=== PATIENT | female | born 1930 | race African-American/Black ===

== ENCOUNTER 2018-03-23 17:01 | Inpatient (IN) | payer MEDICARE, OTHER ==
[2018-03-23 18:19] LABS: ALANINE AMINOTRANSFERASE 26 U/L (9-52); ALKALINE PHOSPHATASE 59 U/L (38-126); ASPARTATE AMINO TRANSFERASE 55 U/L (14-36); BILIRUBIN,DIRECT 0.7 mg/dL (0.0-0.4); BILIRUBIN,TOTAL 0.9 mg/dL (0.2-1.3); BLOOD UREA NITROGEN 76 mg/dL (7-20); CALCIUM 10.1 mg/dL (8.4-10.2); CREATINE KINASE 1262 U/L (30-135); GLUCOSE 133 mg/dL (75-110); POTASSIUM 3.9 mmol/L (3.6-5.0); TOTAL PROTEIN 7.8 g/dL (6.3-8.2)
[2018-03-23 18:21] LABS: HEMATOCRIT 44.1 % (36.0-47.0); HEMOGLOBIN 14.5 g/dL (12.0-15.5); MEAN CORPUSCULAR HEMOGLOBIN 28.6 pg (27.0-33.4); MEAN CORPUSCULAR VOLUME 87 fl (80-97); PLATELET COUNT 218 10^3/uL (150-450); RED BLOOD COUNT 5.09 10^6/uL (3.72-5.28); RED CELL DISTRIBUTION WIDTH 14.6 % (11.5-14.0); WHITE BLOOD COUNT 13.5 10^3/uL (4.0-10.5)
[2018-03-23 18:24] LABS: ALCOHOL < 10 mg/dL (NONE DETECTED); ANION GAP 19 (5-19); CARBON DIOXIDE 24 mmol/L (22-30); CHLORIDE 116 mmol/L (98-107); SODIUM 159.1 mmol/L (137-145)
--- NOTE | 2018-03-23 18:30 | RADIOLOGY REPORT (SQ) ---
EXAM DESCRIPTION: CT HEAD WITHOUT COMPLETED DATE/TIME: 03/23/2018 6:18 pm REASON FOR STUDY: found down fall ams COMPARISON: None. TECHNIQUE: Axial images acquired through the brain without intravenous contrast. Images reviewed wi th bone, brain and subdural windows. Additional sagittal and coronal reconstructions were generated. Images stored on PACS. All CT scanners at this facility use dose modulation, iterative reconstruction, and/or weight based d osing when appropriate to reduce radiation dose to as low as reasonably achievable (ALARA). [facility]: Dose Right [facility]: CareDose [facility]: Dose Right [facility]: Teradose 4D [facility]: [employer] RADIATION DOSE: CT Rad equipment meets quality standard of care and radiation dose reduction techniq ues were employed. CTDIvol: 53.2 mGy. DLP: 991 mGy-cm. mGy. LIMITATIONS: None. FINDINGS: VENTRICLES: Normal size and contour. CEREBRUM: Cortical atrophy. No masses. No hemorrhage. No midline shift. No evidence for acute inf arction. Areas of low density in the white matter most likely chronic small vessel ischemic changes. CEREBELLUM: No masses. No hemorrhage. No alteration of density. No evidence for acute infarction. EXTRAAXIAL SPACES: No fluid collections. No masses. ORBITS AND GLOBE: No intra- or extraconal masses. Normal contour of globe without masses. CALVARIUM: No fracture. PARANASAL SINUSES: No fluid or mucosal thickening. SOFT TISSUES: There may be a shallow scalp hematoma in the left parietal region. OTHER: No other significant finding. IMPRESSION: 1. Possible left parietal scalp hematoma. 2. Chronic microvascular ischemia with no acute intracranial imaging findings. EVIDENCE OF ACUTE STROKE: NO. COMMENT: Quality ID # [id number]: Final reports with documentation of one or more dose reduction techniques (e.g., Automated exposure control, adjustment of the mA and/or kV according to patient size, use of iterative reconstruction technique) TECHNICAL DOCUMENTATION: JOB ID: [id number] [employer] All Rights Reserved Reading location - IP/workstation name: [email or web address]
--- NOTE | 2018-03-23 18:40 | RADIOLOGY REPORT (SQ) ---
EXAM DESCRIPTION: CHEST SINGLE VIEW COMPLETED DATE/TIME: 03/23/2018 6:30 pm REASON FOR STUDY: found down fall ams COMPARISON: None. EXAM PARAMETERS: NUMBER OF VIEWS: One view. TECHNIQUE: Single frontal radiographic view of the chest acquired. RADIATION DOSE: NA LIMITATIONS: None. FINDINGS: LUNGS AND PLEURA: No opacities, masses or pneumothorax. No pleural effusion. MEDIASTINUM AND HILAR STRUCTURES: No masses. Contour normal. HEART AND VASCULAR STRUCTURES: Heart normal in size. Normal vasculature. BONES: No acute findings. HARDWARE: None in the chest. OTHER: No other significant finding. IMPRESSION: NO ACUTE RADIOGRAPHIC FINDING IN THE CHEST. TECHNICAL DOCUMENTATION: JOB ID: [id number] [employer]- All Rights Reserved Reading location - IP/workstation name: [email or web address]
--- NOTE | 2018-03-23 18:41 | RADIOLOGY REPORT (SQ) ---
EXAM DESCRIPTION: HIP BILATERAL COMPLETED DATE/TIME: 03/23/2018 6:30 pm REASON FOR STUDY: found down fall ams COMPARISON: None. NUMBER OF VIEWS: Two views. TECHNIQUE: AP pelvis and additional frog-leg view of the right and left hip. LIMITATIONS: None. FINDINGS: MINERALIZATION: Normal. RIGHT HIP: No fracture or dislocation. No worrisome bone lesions. LEFT HIP: No fracture or dislocation. No worrisome bone lesions. PUBIS AND ISCHIUM: No fracture. PELVIS: No fracture. SACRUM: No fracture or dislocation. No worrisome bone lesions. LOWER LUMBAR SPINE: Lower lumbar degenerative disc changes. SOFT TISSUES: No findings. OTHER: No other significant finding. IMPRESSION: Normal hips. Lumbar degenerative changes. TECHNICAL DOCUMENTATION: JOB ID: [id number] [employer]- All Rights Reserved Reading location - IP/workstation name: [email or web address]
[2018-03-23] MEDS ORDERED: NORMAL SALINE 500 ML IV ONE (18:44)
[2018-03-23] MEDS ORDERED: NORMAL SALINE 1000 ML 1,000 ML IV ONE (18:44)
[2018-03-23 18:46] LABS: ABSOLUTE LYMPHOCYTES# (MANUAL) 0.8 10^3/uL (0.5-4.7); ABSOLUTE MONOCYTES # (MANUAL) 0.8 10^3/uL (0.1-1.4); ABSOLUTE NEUTROPHILS# (MANUAL) 11.9 10^3/uL (1.7-8.2); BAND NEUTROPHILS % (MANUAL) 4 % (3-5); BASOPHILS % (MANUAL) 0 % (0-2); EOSINOPHILS % (MANUAL) 0 % (0-6); LYMPHOCYTES % (MANUAL) 6 % (13-45); MONOCYTES % (MANUAL) 6 % (3-13); SEGMENTED NEUTROPHILS % (MAN) 84 % (42-78); TOTAL CELLS COUNTED 100
[2018-03-23 18:47] LABS: ANISOCYTOSIS SLIGHT; PLATELET COMMENT ADEQUATE
[2018-03-23 19:44] LABS: URINE AMPHETAMINES SCREEN NEGATIVE; URINE BARBITURATES SCREEN NEGATIVE; URINE BENZODIAZEPINES SCREEN NEGATIVE; URINE COCAINE SCREEN NEGATIVE; URINE MARIJUANA (THC) SCREEN NEGATIVE; URINE METHADONE SCREEN NEGATIVE; URINE PHENCYCLIDINE SCREEN NEGATIVE
[2018-03-23 19:48] LABS: APPEARANCE,URINE CLEAR; BILIRUBIN,URINE NEGATIVE (NEGATIVE); GLUCOSE, URINE NEGATIVE (NEGATIVE); KETONES,URINE 20 mg/dL (NEGATIVE); LEUKOCYTE ESTERASE,URINE NEGATIVE (NEGATIVE); NITRITE,URINE NEGATIVE (NEGATIVE); PROTEIN,URINE 100 mg/dL (NEGATIVE); URINE SPECIFIC GRAVITY 1.021
[2018-03-23 19:49] LABS: COLOR,URINE YELLOW
--- NOTE | 2018-03-23 20:39 | EKG REPORT ---
SEVERITY:- BORDERLINE ECG - SINUS TACHYCARDIA BORDERLINE T ABNORMALITIES, INFERIOR LEADS : Confirmed by: Valencia Nguyen MD 23-Mar-2018 20:38:11
[2018-03-23] MEDS ORDERED: RISPERIDONE 0.25 MG TABLET PO PRN (20:48)
[2018-03-23] MEDS ORDERED: MAG HYDROX/AL HYDROX/SIMETH SUSP 30 ML UDCUP PO PRN (20:48)
[2018-03-23] MEDS ORDERED: MAGNESIUM HYDROXIDE SUSP 30 ML UDCUP PO PRN (20:48)
[2018-03-23] MEDS ORDERED: LORAZEPAM INJ 2 MG/1 ML VIAL IV PRN (20:48)
[2018-03-23] MEDS ORDERED: IPRATROPIUM/ALBUTEROL 0.5-2.5 MG/3 ML AMPUL NEB PRN (20:48)
[2018-03-23] MEDS ORDERED: ACETAMINOPHEN 325 MG TABLET PO PRN (20:48)
[2018-03-23 21:55] LABS: CREATINE KINASE MB 8.06 ng/mL (<4.55); TROPONIN I 0.033 ng/mL
[2018-03-23] MEDS: POTASSI CL 20 MEQ/1/2NS 1L 20 MEQ/1,000 ML RTUINJ IV SCH (23:01)
[2018-03-23] MEDS: HEPARIN SOD (PORCINE) 5,000 UNIT/ML 1 ML SYRINGE SUBCUT SCH (23:02)
--- NOTE | 2018-03-23 23:56 | ER Document Report ---
ED General - General Chief Complaint: Hip Injury Stated Complaint: RIGHT HIP PAIN,ALTER MENTAL STATUS Time Seen by Provider: 03/23/18 17:50 TRAVEL OUTSIDE OF THE [place] IN LAST 30 DAYS: No - HPI Patient complains to provider of: Altered mental status Notes: Altered mental status. Patient lives by herself was found on the floor by a neighbor. Last seen approximately 48 hours before the neighbor found her. Patient according to the neighbor does not have any medical issues does not see any doctors and also does not have any family locally. Patient upon my evaluation is alert looks to be significantly dehydrated with dry mucous membranes. Patient was asked what hospital she is that she states that she does not know. When patient is asked the year patient states that she knows but will not tell us the answer. Patient does complain of left hip pain. Patient is unaware of how she fell to the ground or how long she has been on the ground. Neighbor bedside states that the patient's speech is normal for her however she does seem to be more altered - Related Data Allergies/Adverse Reactions: No Known Allergies Allergy (Unverified 03/23/18 18:04) Past Medical History - Social History Smoking Status: Never Smoker Chew tobacco use (# tins/day): No Frequency of alcohol use: None Drug Abuse: None Family History: Reviewed & Not Pertinent Patient has suicidal ideation: No Patient has homicidal ideation: No Renal/ Medical History: Denies: Hx Peritoneal Dialysis Review of Systems - Review of Systems -: Yes ROS unobtainable due to patient's medical condition - Altered mental status Physical Exam - Vital signs Vitals: Temp Resp BP Pulse Ox 97.6 F 17 153/89 H 98 03/23/18 17:15 03/23/18 17:15 03/23/18 17:15 03/23/18 17:15 Interpretation: Normal - General General appearance: Appears well, Alert, Other - Disheveled - HEENT Head: Normocephalic, Atraumatic Eyes: Normal Pupils: PERRL Mucous membranes: Dry - Respiratory Respiratory status: No respiratory distress Chest status: Nontender Breath sounds: Normal Chest palpation: Normal - Cardiovascular Rhythm: Regular Heart sounds: Normal auscultation Murmur: No - Abdominal Inspection: Normal Distension: No distension Bowel sounds: Normal Tenderness: Nontender Organomegaly: No organomegaly - Back Back: Normal, Nontender - Extremities General upper extremity: Normal inspection, Nontender, Normal color, Normal ROM , Normal temperature General lower extremity: Normal inspection, Other - Patient is holding her knees flexed position. Patient lying on her right hip does not complain to palpation initially of the right hip however does complain palpation of the left. Patient has unkempt toenails - Neurological Neuro grossly intact: Yes Cognition: Normal Orientation: AAOx4 Bhavya Coma Scale Eye Opening: Spontaneous Bhav[place] Coma Scale Verbal: Oriented [place] Coma Scale Motor: Obeys Commands [place] Coma Scale Total: 15 Speech: Normal Motor strength normal: LUE, RUE, LLE, RLE Sensory: Normal - Psychological Associated symptoms: Normal affect, Normal mood - Skin Skin Temperature: Warm Skin Moisture: Dry Skin Color: Normal Course - Re-evaluation Re-evalutation: 03/23/18 23:55 Laboratory studies show signs of rhabdomyolysis hypernatremia consistent with dehydration. CT of the head is otherwise normal. Patient will be admitted for further evaluation. - Vital Signs Vital signs: Temp Pulse Resp BP Pulse Ox 97.4 F 90 20 149/82 H 98 03/23/18 22:45 03/23/18 22:45 03/23/18 22:45 03/23/18 22:45 03/23/18 22:45 - Laboratory Result Diagrams: 03/23/18 17:30 03/23/18 17:30 Laboratory results interpreted by me: 03/23/18 03/23/18 03/23/18 17:30 17:30 18:01 WBC 13.5 H RDW 14.6 H Seg Neuts % (Manual) 84 H Lymphocytes % (Manual) 6 L Abs Neuts (Manual) 11.9 H Sodium 159.1 H Chloride 116 H BUN 76 H Est GFR ( Amer) 55 L Est GFR (Non-Af Amer) 46 L Glucose 133 H POC Glucose 122 H Magnesium 3.1 H Direct Bilirubin 0.7 H AST 55 H Creatine Kinase 1262 H Urine Protein Urine Ketones Urine Blood Urine Urobilinogen 03/23/18 19:14 WBC RDW Seg Neuts % (Manual) Lymphocytes % (Manual) Abs Neuts (Manual) Sodium Chloride BUN Est GFR ( Amer) Est GFR (Non-Af Amer) Glucose POC Glucose Magnesium Direct Bilirubin AST Creatine Kinase Urine Protein 100 H Urine Ketones 20 H Urine Blood LARGE H Urine Urobilinogen 2.0 H Discharge - Discharge Clinical Impression: Hypernatremia, Elevated BUN Altered mental status Qualifiers: Altered mental status type: unspecified Qualified Code(s): R41.82 - Altered mental status, unspecified Rhabdomyolysis Qualifiers: Rhabdomyolysis type: non-traumatic Qualified Code(s): M62.82 - Rhabdomyolysis Condition: Good Disposition: ADMITTED INPATIENT Admitting Provider: Hospitalist Unit Admitted: Telemetry
[2018-03-24 03:28] LABS: ABSOLUTE LYMPHOCYTES (AUTO) 0.6 10^3/uL (0.5-4.7); ABSOLUTE MONOCYTES (AUTO) 1.5 10^3/uL (0.1-1.4); ABSOLUTE NEUT (AUTO) 9.9 10^3/uL (1.7-8.2); BASOPHILS % (AUTO) 0.2 % (0-2); HEMATOCRIT 41.1 % (36.0-47.0); HEMOGLOBIN 13.3 g/dL (12.0-15.5); LYMPHOCYTES % (AUTO) 5.2 % (13-45); MEAN CORPUSCULAR HEMOGLOBIN 27.9 pg (27.0-33.4); MEAN CORPUSCULAR HGB CONC 32.5 g/dL (32.0-36.0); MEAN CORPUSCULAR VOLUME 86 fl (80-97); MONOCYTES % (AUTO) 12.7 % (3-13); PLATELET COUNT 168 10^3/uL (150-450); RED BLOOD COUNT 4.78 10^6/uL (3.72-5.28); RED CELL DISTRIBUTION WIDTH 14.4 % (11.5-14.0); SEGMENTED NEUTROPHILS % (AUTO) 81.9 % (42-78); TOTAL CELLS COUNTED % (AUTO) 100 %; WHITE BLOOD COUNT 12.1 10^3/uL (4.0-10.5)
[2018-03-24 03:42] LABS: ANION GAP 9 (5-19); BLOOD UREA NITROGEN 59 mg/dL (7-20); CALCIUM 9.1 mg/dL (8.4-10.2); CARBON DIOXIDE 27 mmol/L (22-30); CHLORIDE 119 mmol/L (98-107); GLUCOSE 110 mg/dL (75-110); PHOSPHORUS 2.8 mg/dL (2.5-4.5); POTASSIUM 3.8 mmol/L (3.6-5.0); SODIUM 155.4 mmol/L (137-145)
[2018-03-24 03:52] LABS: CREATINE KINASE MB 5.61 ng/mL (<4.55); TROPONIN I 0.038 ng/mL
[2018-03-24] MEDS: POTASSI CL 20 MEQ/1/2NS 1L 20 MEQ/1,000 ML RTUINJ IV SCH (05:38)
[2018-03-24] MEDS: HEPARIN SOD (PORCINE) 5,000 UNIT/ML 1 ML SYRINGE SUBCUT SCH ×3 (05:39→22:52)
[2018-03-24 10:00] LABS: CREATINE KINASE MB 3.64 ng/mL (<4.55); TROPONIN I 0.028 ng/mL
[2018-03-24] MEDS: DOCUSATE SODIUM 100 MG CAPSULE PO SCH ×2 (10:15→17:19)
[2018-03-24] MEDS: ACETAMINOPHEN 325 MG TABLET PO SCH ×2 (13:33→17:19)
--- NOTE | 2018-03-24 14:36 | PDOC PROGRESS REPORT ---
Subjective Progress Note for:: 03/24/18 Subjective:: Admitted overnight. Patient has no family however neighbor who is very close and provides support at bedside. Feels that patient is improved this AM however not at baseline. Hip pain persists. Patient denies pain when asked but felt to be delirious. No abdominal pain, NV. Reason For Visit: ENCEPHALOPATHY HYPERNATREMIA, HYPOKALEMIA Physical Exam Vital Signs: Temp Pulse Resp BP Pulse Ox 97.4 F 87 17 111/66 100 03/24/18 11:52 03/24/18 11:52 03/24/18 11:52 03/24/18 11:52 03/24/18 11:52 Intake & Output 03/23/18 03/24/18 03/25/18 06:59 06:59 06:59 Intake Total 1250 Balance 1250 Weight 84.4 kg General appearance: PRESENT: no acute distress, obese Head exam: PRESENT: normocephalic Mouth exam: PRESENT: moist Teeth exam: PRESENT: edentulous Respiratory exam: PRESENT: unlabored Cardiovascular exam: PRESENT: RRR. ABSENT: tachycardia GI/Abdominal exam: PRESENT: soft. ABSENT: tenderness Neurological exam: PRESENT: alert, oriented to person. ABSENT: oriented to place, oriented to time, oriented to situation Psychiatric exam: PRESENT: agitated Results Laboratory Results: 03/24/18 03:11 03/24/18 03:11 03/24/18 03/24/18 03:11 03:11 WBC 12.1 H RBC 4.78 Hgb 13.3 Hct 41.1 MCV 86 MCH 27.9 MCHC 32.5 RDW 14.4 H Plt Count 168 Seg Neutrophils % 81.9 H Lymphocytes % 5.2 L Monocytes % 12.7 Eosinophils % 0.0 Basophils % 0.2 Absolute Neutrophils 9.9 H Absolute Lymphocytes 0.6 Absolute Monocytes 1.5 H Absolute Eosinophils 0.0 Absolute Basophils 0.0 Sodium 155.4 H Potassium 3.8 Chloride 119 H Carbon Dioxide 27 Anion Gap 9 BUN 59 H Creatinine 0.82 Est GFR ( Amer) > 60 Est GFR (Non-Af Amer) > 60 Glucose 110 Calcium 9.1 Phosphorus 2.8 Magnesium 2.8 H 03/23/18 03/24/18 03/24/18 21:18 03:11 09:16 CK-MB (CK-2) 8.06 H 5.61 H 3.64 Troponin I 0.033 0.038 0.028 Impressions: Chest X-Ray 03/23/18 18:01 IMPRESSION: NO ACUTE RADIOGRAPHIC FINDING IN THE CHEST. Head CT 03/23/18 18:01 IMPRESSION: 1. Possible left parietal scalp hematoma. 2. Chronic microvascular ischemia with no acute intracranial imaging findings. EVIDENCE OF ACUTE STROKE: NO. Hip X-Ray 03/23/18 18:01 IMPRESSION: Normal hips. Lumbar degenerative changes. Assessment & Plan - Diagnosis (1) Altered mental status Qualifiers: Altered mental status type: delirium Qualified Code(s): R41.0 - Disorientation, unspecified Is this a current diagnosis for this admission?: Yes Plan: Patient found down at home by neighbor/close friend. Unclear reason. Patient is independent, lives alone, and takes care of most of her ADLs/iADLs. She likely has baseline dementia however current mental status is worse than usual. No evidence of infection (UA/CXR negative). CT head does not show active bleeding, however there is notation of small hematoma. Patient's labs consistent with rhabdo and dehydration. Improved today. Pain may also be contributing to confusion. - Continue IVF - Schedule tylenol - If agitated would consider low dose Zyprexa 0.5mg TID prn (2) Elevated BUN Is this a current diagnosis for this admission?: Yes Plan: Likely due to dehydration. Labs improved on 03/24. Continue conservative management per above. (3) Hypernatremia Is this a current diagnosis for this admission?: Yes Plan: Most likely hyperatremia due to hypovolemia. Continue IVF. (4) Rhabdomyolysis Qualifiers: Rhabdomyolysis type: non-traumatic Qualified Code(s): M62.82 - Rhabdomyolysis Is this a current diagnosis for this admission?: Yes Plan: IVF per above. Will re-check CK in AM to document down trending levels. - Time Time Spent with patient: Less than 15 minutes Anticipated discharge: SNF Within: within 24 hours, within 48 hours
[2018-03-25] MEDS: ACETAMINOPHEN 325 MG TABLET PO SCH ×5 (00:09→23:34)
[2018-03-25] MEDS: NORMAL SALINE 1000 ML 1,000 ML IV PRN (04:41)
[2018-03-25] MEDS: HEPARIN SOD (PORCINE) 5,000 UNIT/ML 1 ML SYRINGE SUBCUT SCH ×3 (07:02→21:17)
[2018-03-25 08:21] LABS: ABSOLUTE EOSINOPHILS # (AUTO) 0.1 10^3/uL (0.0-0.6); ABSOLUTE LYMPHOCYTES (AUTO) 0.8 10^3/uL (0.5-4.7); ABSOLUTE MONOCYTES (AUTO) 0.6 10^3/uL (0.1-1.4); ABSOLUTE NEUT (AUTO) 5.5 10^3/uL (1.7-8.2); BASOPHILS % (AUTO) 0.2 % (0-2); EOSINOPHILS % (AUTO) 0.8 % (0-6); HEMOGLOBIN 12.4 g/dL (12.0-15.5); LYMPHOCYTES % (AUTO) 11.5 % (13-45); MEAN CORPUSCULAR HEMOGLOBIN 28.7 pg (27.0-33.4); MEAN CORPUSCULAR HGB CONC 33.4 g/dL (32.0-36.0); MEAN CORPUSCULAR VOLUME 86 fl (80-97); MONOCYTES % (AUTO) 8.7 % (3-13); PLATELET COUNT 162 10^3/uL (150-450); RED CELL DISTRIBUTION WIDTH 14.4 % (11.5-14.0); SEGMENTED NEUTROPHILS % (AUTO) 78.8 % (42-78); TOTAL CELLS COUNTED % (AUTO) 100 %
[2018-03-25 08:36] LABS: ANION GAP 9 (5-19); BLOOD UREA NITROGEN 31 mg/dL (7-20); CALCIUM 8.7 mg/dL (8.4-10.2); CARBON DIOXIDE 23 mmol/L (22-30); CHLORIDE 115 mmol/L (98-107); CREATINE KINASE 1033 U/L (30-135); GLUCOSE 77 mg/dL (75-110); POTASSIUM 3.7 mmol/L (3.6-5.0); SODIUM 147.3 mmol/L (137-145)
[2018-03-25] MEDS: DOCUSATE SODIUM 100 MG CAPSULE PO SCH ×2 (10:55→17:16)
--- NOTE | 2018-03-25 17:53 | PDOC PROGRESS REPORT ---
Subjective Progress Note for:: 03/25/18 Subjective:: No overnight events. Neighbor who is very close remains steadfast at bedside. States that she is getting a little better. Was more awake this AM. Tolerating some breakfast. Pain better controlled. No fevers, chills, CP, SOB, NV. Agreeable that patient needs SNF placement . Reason For Visit: ENCEPHALOPATHY HYPERNATREMIA, HYPOKALEMIA Physical Exam Vital Signs: Temp Pulse Resp BP Pulse Ox 98.1 F 91 19 113/88 H 98 03/25/18 16:00 03/25/18 16:00 03/25/18 16:00 03/25/18 16:00 03/25/18 16:00 Intake & Output 03/24/18 03/25/18 03/26/18 06:59 06:59 06:59 Intake Total 1250 2100 1840 Balance 1250 2100 1840 Weight 84.4 kg 47 kg General appearance: PRESENT: no acute distress, thin, other - Resting comfortably Head exam: PRESENT: normocephalic Mouth exam: PRESENT: moist Teeth exam: PRESENT: edentulous Respiratory exam: PRESENT: unlabored. ABSENT: tachypnea Cardiovascular exam: PRESENT: +S1, +S2. ABSENT: tachycardia GI/Abdominal exam: PRESENT: soft. ABSENT: tenderness Neurological exam: PRESENT: altered, awake, other - Unable to assess Results Laboratory Results: 03/25/18 07:49 03/25/18 07:49 03/25/18 03/25/18 07:49 07:49 WBC 7.0 RBC 4.30 Hgb 12.4 Hct 37.0 MCV 86 MCH 28.7 MCHC 33.4 RDW 14.4 H Plt Count 162 Seg Neutrophils % 78.8 H Lymphocytes % 11.5 L Monocytes % 8.7 Eosinophils % 0.8 Basophils % 0.2 Absolute Neutrophils 5.5 Absolute Lymphocytes 0.8 Absolute Monocytes 0.6 Absolute Eosinophils 0.1 Absolute Basophils 0.0 Sodium 147.3 H Potassium 3.7 Chloride 115 H Carbon Dioxide 23 Anion Gap 9 BUN 31 H Creatinine 0.68 Est GFR ( Amer) > 60 Est GFR (Non-Af Amer) > 60 Glucose 77 Calcium 8.7 03/23/18 03/24/18 03/24/18 21:18 03:11 09:16 Creatine Kinase CK-MB (CK-2) 8.06 H 5.61 H 3.64 Troponin I 0.033 0.038 0.028 03/25/18 07:49 Creatine Kinase 1033 H CK-MB (CK-2) Troponin I Impressions: Chest X-Ray 03/23/18 18:01 IMPRESSION: NO ACUTE RADIOGRAPHIC FINDING IN THE CHEST. Head CT 03/23/18 18:01 IMPRESSION: 1. Possible left parietal scalp hematoma. 2. Chronic microvascular ischemia with no acute intracranial imaging findings. EVIDENCE OF ACUTE STROKE: NO. Hip X-Ray 03/23/18 18:01 IMPRESSION: Normal hips. Lumbar degenerative changes. Assessment & Plan - Diagnosis (1) Altered mental status Qualifiers: Altered mental status type: delirium Qualified Code(s): R41.0 - Disorientation, unspecified Is this a current diagnosis for this admission?: Yes Plan: Patient found down at home by neighbor/close friend. Unclear reason. Patient is independent, lives alone, and takes care of most of her ADLs/iADLs. She likely has baseline dementia however current mental status is worse than usual. No evidence of infection (UA/CXR negative). CT head does not show active bleeding, however there is notation of small hematoma. Patient's labs consistent with rhabdo and dehydration. Improved today. Pain may also be contributing to confusion. - Slight improvement on 03/25 however not at baseline - Continue IVF and scheduled - If agitated would consider low dose Zyprexa 0.5mg TID prn - PT consult (2) Elevated BUN Is this a current diagnosis for this admission?: Yes Plan: Likely due to dehydration. Labs continue to improve on 03/25, BUN 31. Continue conservative management per above. (3) Hypernatremia Is this a current diagnosis for this admission?: Yes Plan: Most likely hyperatremia due to hypovolemia. Improving, continue IVF. (4) Rhabdomyolysis Qualifiers: Rhabdomyolysis type: non-traumatic Qualified Code(s): M62.82 - Rhabdomyolysis Is this a current diagnosis for this admission?: Yes Plan: IVF per above. CK downtrending on 03/25, will not repeat - Time Time Spent with patient: Less than 15 minutes Anticipated discharge: SNF - Discharge plan has started looking at SNF PT consult
[2018-03-26 05:34] LABS: ABSOLUTE EOSINOPHILS # (AUTO) 0.1 10^3/uL (0.0-0.6); ABSOLUTE LYMPHOCYTES (AUTO) 0.9 10^3/uL (0.5-4.7); ABSOLUTE MONOCYTES (AUTO) 0.7 10^3/uL (0.1-1.4); BASOPHILS % (AUTO) 0.2 % (0-2); EOSINOPHILS % (AUTO) 2.2 % (0-6); HEMATOCRIT 33.9 % (36.0-47.0); HEMOGLOBIN 11.3 g/dL (12.0-15.5); LYMPHOCYTES % (AUTO) 13.3 % (13-45); MEAN CORPUSCULAR HEMOGLOBIN 28.5 pg (27.0-33.4); MEAN CORPUSCULAR HGB CONC 33.5 g/dL (32.0-36.0); MEAN CORPUSCULAR VOLUME 85 fl (80-97); MONOCYTES % (AUTO) 10.4 % (3-13); PLATELET COUNT 142 10^3/uL (150-450); RED BLOOD COUNT 3.99 10^6/uL (3.72-5.28); SEGMENTED NEUTROPHILS % (AUTO) 73.9 % (42-78); TOTAL CELLS COUNTED % (AUTO) 100 %; WHITE BLOOD COUNT 6.7 10^3/uL (4.0-10.5)
[2018-03-26] MEDS: ACETAMINOPHEN 325 MG TABLET PO SCH ×4 (06:00→22:59)
[2018-03-26] MEDS: HEPARIN SOD (PORCINE) 5,000 UNIT/ML 1 ML SYRINGE SUBCUT SCH ×3 (06:00→21:05)
[2018-03-26 06:17] LABS: ANION GAP 7 (5-19); BLOOD UREA NITROGEN 19 mg/dL (7-20); CALCIUM 7.8 mg/dL (8.4-10.2); CARBON DIOXIDE 22 mmol/L (22-30); CHLORIDE 111 mmol/L (98-107); GLUCOSE 72 mg/dL (75-110); POTASSIUM 3.3 mmol/L (3.6-5.0); SODIUM 139.6 mmol/L (137-145)
[2018-03-26] MEDS: DOCUSATE SODIUM 100 MG CAPSULE PO SCH (09:21)
[2018-03-26] MEDS ORDERED: POLYETHYLENE GLYCOL 3350 POWDER 17 GM/1 PACKET PO ONE (12:30)
--- NOTE | 2018-03-26 16:59 | PDOC PROGRESS REPORT ---
Subjective Progress Note for:: 03/26/18 Subjective:: No overnight events. Remains somnulent however will wake up. Oriented only to self. PO intake has been poor. Pain controlled. No fevers, chills, CP, SOB, NV. Needs SNF placement . Reason For Visit: ENCEPHALOPATHY HYPERNATREMIA, HYPOKALEMIA Physical Exam Vital Signs: Temp Pulse Resp BP Pulse Ox 98.2 F 65 16 148/73 H 100 03/26/18 16:00 03/26/18 16:00 03/26/18 16:00 03/26/18 16:00 03/26/18 16:00 Intake & Output 03/25/18 03/26/18 03/27/18 06:59 06:59 06:59 Intake Total 2100 2940 Balance 2100 2940 Weight 47 kg General appearance: PRESENT: no acute distress, thin, other - Ill appearing, sleeping in bed Respiratory exam: PRESENT: unlabored Cardiovascular exam: PRESENT: +S1, +S2. ABSENT: tachycardia GI/Abdominal exam: PRESENT: soft. ABSENT: tenderness Extremities exam: ABSENT: pedal edema Neurological exam: PRESENT: alert, oriented to person. ABSENT: oriented to place, oriented to time Skin exam: PRESENT: dry Results Laboratory Results: 03/26/18 04:45 03/26/18 04:45 03/26/18 03/26/18 04:45 04:45 WBC 6.7 RBC 3.99 Hgb 11.3 L Hct 33.9 L MCV 85 MCH 28.5 MCHC 33.5 RDW 14.0 Plt Count 142 L Seg Neutrophils % 73.9 Lymphocytes % 13.3 Monocytes % 10.4 Eosinophils % 2.2 Basophils % 0.2 Absolute Neutrophils 5.0 Absolute Lymphocytes 0.9 Absolute Monocytes 0.7 Absolute Eosinophils 0.1 Absolute Basophils 0.0 Sodium 139.6 Potassium 3.3 L Chloride 111 H Carbon Dioxide 22 Anion Gap 7 BUN 19 Creatinine 0.56 Est GFR ( Amer) > 60 Est GFR (Non-Af Amer) > 60 Glucose 72 L Calcium 7.8 L 03/23/18 03/24/18 03/24/18 21:18 03:11 09:16 Creatine Kinase CK-MB (CK-2) 8.06 H 5.61 H 3.64 Troponin I 0.033 0.038 0.028 03/25/18 07:49 Creatine Kinase 1033 H CK-MB (CK-2) Troponin I Impressions: Chest X-Ray 03/23/18 18:01 IMPRESSION: NO ACUTE RADIOGRAPHIC FINDING IN THE CHEST. Head CT 03/23/18 18:01 IMPRESSION: 1. Possible left parietal scalp hematoma. 2. Chronic microvascular ischemia with no acute intracranial imaging findings. EVIDENCE OF ACUTE STROKE: NO. Hip X-Ray 03/23/18 18:01 IMPRESSION: Normal hips. Lumbar degenerative changes. Assessment & Plan - Diagnosis (1) Altered mental status Qualifiers: Altered mental status type: delirium Qualified Code(s): R41.0 - Disorientation, unspecified Is this a current diagnosis for this admission?: Yes Plan: Patient found down at home by neighbor/close friend. Unclear reason. Patient is independent, lives alone, and takes care of most of her ADLs/iADLs. She likely has baseline dementia however current mental status is worse than usual. No evidence of infection (UA/CXR negative). CT head does not show active bleeding, however there is notation of small hematoma. Patient's labs consistent with rhabdo and dehydration. 03/26: slowly improving, unclear if this is her baseline - Continue supportive management - If agitated would consider low dose Zyprexa 0.5mg TID prn - PT evaluated patient, 2 person max assist, needs to be placed at SNF (2) Elevated BUN Is this a current diagnosis for this admission?: Yes Plan: Likely due to dehydration. Labs continue to improve on 03/26, BUN 19. Continue conservative management per above. (3) Hypernatremia Is this a current diagnosis for this admission?: Yes Plan: Most likely hyperatremia due to hypovolemia. Now resolved (4) Rhabdomyolysis Qualifiers: Rhabdomyolysis type: non-traumatic Qualified Code(s): M62.82 - Rhabdomyolysis Is this a current diagnosis for this admission?: Yes Plan: IVF per above. CK downtrending on 03/25, will not repeat (5) Goals of care, counseling/discussion Is this a current diagnosis for this admission?: Yes Plan: Patient has a living will and has designated HCPOA. Information given to home. Patient has no living next of kin. Neighbor has been primary life enrichment assistant for many years - Plan is for neighbor to go to home to see if she is actually HCPOA. She will obtain paperwork on 03/27 - Once verified, willing to have GOC discussion including de-escalation of care if patient does not improve - Agreeable to SNF placement for interim - Time Time Spent with patient: 15-24 minutes Anticipated discharge: SNF Within: within 24 hours, when bed available
[2018-03-26] MEDS: MIRTAZAPINE 15 MG TABLET PO SCH (21:31)
[2018-03-27] MEDS: HEPARIN SOD (PORCINE) 5,000 UNIT/ML 1 ML SYRINGE SUBCUT SCH ×4 (03:54→23:08)
[2018-03-27] MEDS: NORMAL SALINE 1000 ML 1,000 ML IV PRN (03:54)
[2018-03-27] MEDS: ACETAMINOPHEN 325 MG TABLET PO SCH ×4 (06:14→22:45)
[2018-03-27 06:29] LABS: ANION GAP 9 (5-19); BLOOD UREA NITROGEN 11 mg/dL (7-20); CARBON DIOXIDE 25 mmol/L (22-30); CHLORIDE 109 mmol/L (98-107); GLUCOSE 74 mg/dL (75-110); SODIUM 142.5 mmol/L (137-145)
[2018-03-27 06:34] LABS: POTASSIUM 2.9 mmol/L (3.6-5.0)
[2018-03-27] MEDS: POTASSIUM CHLORIDE 20 MEQ/50 ML RTU IV SCH ×2 (07:03→08:49)
[2018-03-27] MEDS ORDERED: NORMAL SALINE 1000 ML 1,000 ML IV PRN (09:38)
[2018-03-27] MEDS: POLYETHYLENE GLYCOL 3350 POWDER 17 GM/1 PACKET PO SCH (10:19)
[2018-03-27] MEDS ORDERED: RISPERIDONE 0.25 MG TABLET PO PRN (14:27)
--- NOTE | 2018-03-27 14:46 | PDOC PROGRESS REPORT ---
Subjective Progress Note for:: 03/27/18 Subjective:: The patient is an 87-year-old female with limited past medical history secondary to advanced dementia (oriented to self only) unavailability of family members and no previous hospital records. The patient was admitted on 2017 for encephalopathy, hypernatremia, hypokalemia, and rhabdomyolysis. Patient is seen on morning rounds. She is found resting in bed comfortably on room air. She is sleeping when I enter the room but does wake easily when I say her name. She is not verbal with me, but does shake her head no when asked if she is in any discomfort; otherwise does not answer questions or follow directions. Per nursing staff, the patient is oriented to self only, refuses most meals, and intermittently refuses medications. Plan for today is to correct potassium and attempt to verify if patient has an established HCPOA/POA. Patient is nearing discharge to SNF and due to poor p.o. intake, may be appropriate for hospice referral. Reason For Visit: ENCEPHALOPATHY HYPERNATREMIA, HYPOKALEMIA Physical Exam Vital Signs: Temp Pulse Resp BP Pulse Ox 98.2 F 70 14 171/72 H 97 03/27/18 11:53 03/27/18 11:53 03/27/18 11:53 03/27/18 11:53 03/27/18 11:53 Intake & Output 03/26/18 03/27/18 03/28/18 06:59 06:59 06:59 Intake Total 2940 2640 Balance 2940 2640 Weight 49 kg General appearance: PRESENT: no acute distress, thin, well-developed, other - Frail, chronically ill-appearing Head exam: PRESENT: atraumatic, normocephalic Eye exam: PRESENT: conjunctiva pink, EOMI, PERRLA. ABSENT: scleral icterus Ear exam: PRESENT: normal external ear exam Mouth exam: PRESENT: moist, tongue midline Neck exam: ABSENT: carotid bruit, JVD, lymphadenopathy, thyromegaly Respiratory exam: PRESENT: clear to auscultation bettie, symmetrical, unlabored. ABSENT: rales, rhonchi, wheezes Cardiovascular exam: PRESENT: RRR. ABSENT: diastolic murmur, rubs, systolic murmur Pulses: PRESENT: normal dorsalis pedis pul Vascular exam: PRESENT: normal capillary refill GI/Abdominal exam: PRESENT: normal bowel sounds, soft. ABSENT: distended, guarding, mass, organolmegaly, rebound, tenderness Rectal exam: PRESENT: deferred Extremities exam: ABSENT: pedal edema Neurological exam: PRESENT: alert, oriented to person. ABSENT: oriented to place, oriented to time, oriented to situation Skin exam: PRESENT: dry, intact, warm. ABSENT: cyanosis, rash Results Laboratory Results: 03/26/18 04:45 03/27/18 05:49 03/27/18 03/27/18 05:49 05:49 Sodium 142.5 Potassium 2.9 L* Chloride 109 H Carbon Dioxide 25 Anion Gap 9 BUN 11 Creatinine 0.50 L Est GFR ( Amer) > 60 Est GFR (Non-Af Amer) > 60 Glucose 74 L Calcium 8.0 L Magnesium 2.0 03/23/18 03/24/18 03/24/18 21:18 03:11 09:16 Creatine Kinase CK-MB (CK-2) 8.06 H 5.61 H 3.64 Troponin I 0.033 0.038 0.028 03/25/18 07:49 Creatine Kinase 1033 H CK-MB (CK-2) Troponin I Impressions: Chest X-Ray 03/23/18 18:01 IMPRESSION: NO ACUTE RADIOGRAPHIC FINDING IN THE CHEST. Head CT 03/23/18 18:01 IMPRESSION: 1. Possible left parietal scalp hematoma. 2. Chronic microvascular ischemia with no acute intracranial imaging findings. EVIDENCE OF ACUTE STROKE: NO. Hip X-Ray 03/23/18 18:01 IMPRESSION: Normal hips. Lumbar degenerative changes. Assessment & Plan - Diagnosis (1) Altered mental status Qualifiers: Altered mental status type: delirium Qualified Code(s): R41.0 - Disorientation, unspecified Is this a current diagnosis for this admission?: Yes Plan: The patient was admitted after being found down at home by a neighbor/close friend; unclear downtime or cause of fall. Prior to admission, the patient lived independently. Unclear baseline mental status, however, does likely have some underlying dementia. No evidence of infection (UA/CXR negative) Head CT revealed possible left parietal scalp hematoma and chronic microvascular ischemia with no acute intracranial findings. LFTs acceptable. Continue supportive care. Continue to correct electrolyte derangements. Avoid sedating medications. Risperidone 0.25 mg every 12 hours as needed anxiety/agitation. The patient has been placed on mirtazapine; may improve underlying/unknown depression as well as support appetite. Fall precautions. PT/OT evaluations; recommendations for SNF placement. Discharge planning is consulted; appreciate their assistance in establishing whether or not the patient has an HC POA. If patient's mental status does not continue to improve and p.o. intake increase , may need to consider hospice referral. (2) Hypokalemia Is this a current diagnosis for this admission?: Yes Plan: Secondary to poor p.o. intake. Magnesium normal. Replaced via IV; will monitor chemistries and continue to replace as needed. (3) Anemia Is this a current diagnosis for this admission?: Yes Plan: Secondary to hemodilution; patient has received approximately 9 L IV fluids over the course of this admission for correction of dehydration and rhabdomyolysis. No indications of active bleeding. IV fluid rate is reduced. We will continue to monitor. (4) Rhabdomyolysis Qualifiers: Rhabdomyolysis type: non-traumatic Qualified Code(s): M62.82 - Rhabdomyolysis Is this a current diagnosis for this admission?: Yes Plan: Improving; CK trending down, no longer monitoring. Continue IVF, though at slightly decreased rate : 75ml/hr. Encourage p.o. fluids. Turn/reposition q2 hours; OOB daily with assistance. (5) At risk for malnutrition Is this a current diagnosis for this admission?: Yes Plan: Patient with low BMI (21.1), loss of subcutaneous fat and muscle, advanced dementia (oriented to self only) with poor p.o. intake since time of admission. Has been placed on mirtazapine for appetite support. We will consult the registered dietitian for recommendations. (6) Goals of care, counseling/discussion Is this a current diagnosis for this admission?: Yes Plan: Per previous providers notes, the patient has no living next of kin. Discharge planning has been consulted to assist with determining whether or not the patient has a healthcare power of lamination operator. Per note, the patient's neighbor has been assisting in caring for the patient believes that she may have one on file at local home and will assist in contacting the home to verify paperwork. Patient is recommended to be discharged to SNF, may benefit from palliative care /hospice referral. (7) Hypernatremia Is this a current diagnosis for this admission?: Yes Plan: Resolved; secondary to dehydration. (8) Elevated BUN Is this a current diagnosis for this admission?: Yes Plan: Resolved; secondary to dehydration and rhabdomyolysis. - Time Time Spent with patient: 15-24 minutes Medications reviewed and adjusted accordingly: Yes Anticipated discharge: SNF Within: within 48 hours
[2018-03-27 16:02] LABS: ANION GAP 11 (5-19); BLOOD UREA NITROGEN 8 mg/dL (7-20); CALCIUM 8.1 mg/dL (8.4-10.2); CARBON DIOXIDE 23 mmol/L (22-30); CHLORIDE 107 mmol/L (98-107); GLUCOSE 74 mg/dL (75-110); POTASSIUM 3.4 mmol/L (3.6-5.0); SODIUM 141.1 mmol/L (137-145)
[2018-03-27] MEDS ORDERED: POTASSI CL 20 MEQ/50 ML RIDER 20 MEQ/50 ML RTUPB IV ONE (17:00)
[2018-03-27] MEDS: MIRTAZAPINE 15 MG TABLET PO SCH (22:45)
[2018-03-28] MEDS: ACETAMINOPHEN 325 MG TABLET PO SCH ×2 (04:57→11:12)
[2018-03-28 05:25] LABS: ALANINE AMINOTRANSFERASE 34 U/L (9-52); ALBUMIN 2.8 g/dL (3.5-5.0); ALKALINE PHOSPHATASE 59 U/L (38-126); ANION GAP 14 (5-19); ASPARTATE AMINO TRANSFERASE 74 U/L (14-36); BILIRUBIN,DIRECT 0.4 mg/dL (0.0-0.4); BILIRUBIN,TOTAL 0.6 mg/dL (0.2-1.3); BLOOD UREA NITROGEN 7 mg/dL (7-20); CALCIUM 8.3 mg/dL (8.4-10.2); CARBON DIOXIDE 22 mmol/L (22-30); CHLORIDE 105 mmol/L (98-107); GLUCOSE 75 mg/dL (75-110); POTASSIUM 3.2 mmol/L (3.6-5.0); SODIUM 140.5 mmol/L (137-145); TOTAL PROTEIN 6.3 g/dL (6.3-8.2)
[2018-03-28 06:53] LABS: HEMATOCRIT 39.8 % (36.0-47.0); MEAN CORPUSCULAR HEMOGLOBIN 28.3 pg (27.0-33.4); MEAN CORPUSCULAR HGB CONC 33.9 g/dL (32.0-36.0); MEAN CORPUSCULAR VOLUME 84 fl (80-97); PLATELET COUNT 152 10^3/uL (150-450); RED BLOOD COUNT 4.76 10^6/uL (3.72-5.28); RED CELL DISTRIBUTION WIDTH 14.3 % (11.5-14.0); WHITE BLOOD COUNT 6.3 10^3/uL (4.0-10.5)
[2018-03-28 07:16] LABS: HEMOGLOBIN 13.5 g/dL (12.0-15.5)
--- NOTE | 2018-03-28 08:34 | PSYCHOLOGICAL NOTE ---
Psych Note - Psych Note Psych Note: Consult Requested: IVC Chart review conducted: Patient is an 87-year-old female with limited past medical history secondary to advanced dementia (oriented to self only) unavailability of family members and no previous hospital records. The patient was admitted on 03/23/2018 for encephalopathy, hypernatremia, hypokalemia, and rhabdomyolysis. Patient is recommended for rescind of IVC; she does not meet IVC criteria per [place] GS 122C. Patient has a medical diagnosis of advanced dementia.
[2018-03-28] MEDS: POLYETHYLENE GLYCOL 3350 POWDER 17 GM/1 PACKET PO SCH (09:18)
[2018-03-28] MEDS ORDERED: POTASSIUM CHLORIDE 20 MEQ/15 ML UDCUP PO ONE (09:45)
[2018-03-28] MEDS ORDERED: LOSARTAN POTASSIUM 25 MG TABLET PO SCH (10:00)
[2018-03-28] MEDS ORDERED: POTASSI CL 20 MEQ/50 ML RIDER 20 MEQ/50 ML RTUPB IV ONE (10:30)
[2018-03-28] MEDS: POTASSIUM CHLORIDE 10 MEQ CAPSULE.ER PO SCH ×2 (12:32→16:30)
[2018-03-28] MEDS ORDERED: HYDRALAZINE HCL INJ/PF 20 MG/1 ML SDV IV PRN (13:50)
[2018-03-28] MEDS ORDERED: ACETAMINOPHEN 325 MG TABLET PO PRN (14:53)
[2018-03-28] MEDS: HEPARIN SOD (PORCINE) 5,000 UNIT/ML 1 ML SYRINGE SUBCUT SCH ×3 (15:08→23:46)
--- NOTE | 2018-03-28 15:21 | PDOC PROGRESS REPORT ---
Subjective Progress Note for:: 03/28/18 Subjective:: The patient is an 87-year-old female with limited past medical history secondary to advanced dementia (oriented to self only) unavailability of family members and no previous hospital records. The patient was admitted on 2017 for encephalopathy, hypernatremia, hypokalemia, and rhabdomyolysis. Patient is seen on morning rounds. She is found resting in bed comfortably on room air. She is sleeping when I enter the room but does wake easily when I say her name. She is currently oriented to self, hospital, situation (can recall that she had a fall at home due to losing her balance) but not date. She denies chest pain, dyspnea, abdominal pain, nausea, vomiting. She does endorse a poor appetite and states "I'll try to do better." Her only other complaint is feeling cold when blankets are lowered to auscultate lung sounds. Nursing reports that the patient is refusing most medications and food; did take her losartan but would not finish drinking her oral potassium. Reason For Visit: ENCEPHALOPATHY HYPERNATREMIA, HYPOKALEMIA Physical Exam Vital Signs: Temp Pulse Resp BP Pulse Ox 98.3 F 81 12 182/89 H 99 03/28/18 11:53 03/28/18 11:53 03/28/18 11:53 03/28/18 11:53 03/28/18 11:53 Intake & Output 03/27/18 03/28/18 03/29/18 06:59 06:59 06:59 Intake Total 2640 1300 Balance 2640 1300 Weight 49 kg 46.9 kg General appearance: PRESENT: no acute distress, hard of hearing, thin, well- developed, other - Elderly, frail-appearing Head exam: PRESENT: atraumatic, normocephalic Eye exam: PRESENT: conjunctiva pink, EOMI, PERRLA. ABSENT: scleral icterus Ear exam: PRESENT: normal external ear exam Mouth exam: PRESENT: moist, tongue midline Neck exam: ABSENT: carotid bruit, JVD, lymphadenopathy, thyromegaly Respiratory exam: PRESENT: clear to auscultation bettie, symmetrical, unlabored. ABSENT: rales, rhonchi, wheezes Cardiovascular exam: PRESENT: RRR, +S1, +S2. ABSENT: diastolic murmur, rubs, systolic murmur Pulses: PRESENT: normal dorsalis pedis pul Vascular exam: PRESENT: normal capillary refill GI/Abdominal exam: PRESENT: normal bowel sounds, soft. ABSENT: distended, guarding, mass, organolmegaly, rebound, tenderness Rectal exam: PRESENT: deferred Extremities exam: PRESENT: full ROM. ABSENT: calf tenderness, clubbing, pedal edema Neurological exam: PRESENT: alert, awake, oriented to person, oriented to place , oriented to time, CN II-XII grossly intact. ABSENT: oriented to situation, motor sensory deficit Psychiatric exam: PRESENT: other - Withdrawn. ABSENT: homicidal ideation, suicidal ideation Skin exam: PRESENT: dry, warm, other - Ecchymosis with fluid-filled blisters to left lateral hip and left upper back over scapula. ABSENT: cyanosis, rash Results Laboratory Results: 03/28/18 06:32 03/28/18 04:55 03/27/18 03/28/18 03/28/18 15:35 04:55 04:55 WBC Cancelled RBC Cancelled Hgb Cancelled Hct Cancelled MCV Cancelled MCH Cancelled MCHC Cancelled RDW Cancelled Plt Count Cancelled Sodium 141.1 140.5 Potassium 3.4 L 3.2 L Chloride 107 105 Carbon Dioxide 23 22 Anion Gap 11 14 BUN 8 7 Creatinine 0.49 L 0.51 L Est GFR ( Amer) > 60 > 60 Est GFR (Non-Af Amer) > 60 > 60 Glucose 74 L 75 Calcium 8.1 L 8.3 L Total Bilirubin 0.6 AST 74 H ALT 34 Alkaline Phosphatase 59 Total Protein 6.3 Albumin 2.8 L 03/28/18 06:32 WBC 6.3 RBC 4.76 Hgb 13.5 D Hct 39.8 MCV 84 MCH 28.3 MCHC 33.9 RDW 14.3 H Plt Count 152 Sodium Potassium Chloride Carbon Dioxide Anion Gap BUN Creatinine Est GFR ( Amer) Est GFR (Non-Af Amer) Glucose Calcium Total Bilirubin AST ALT Alkaline Phosphatase Total Protein Albumin 03/23/18 03/24/18 03/24/18 21:18 03:11 09:16 Creatine Kinase CK-MB (CK-2) 8.06 H 5.61 H 3.64 Troponin I 0.033 0.038 0.028 03/25/18 07:49 Creatine Kinase 1033 H CK-MB (CK-2) Troponin I Impressions: Chest X-Ray 03/23/18 18:01 IMPRESSION: NO ACUTE RADIOGRAPHIC FINDING IN THE CHEST. Head CT 03/23/18 18:01 IMPRESSION: 1. Possible left parietal scalp hematoma. 2. Chronic microvascular ischemia with no acute intracranial imaging findings. EVIDENCE OF ACUTE STROKE: NO. Hip X-Ray 03/23/18 18:01 IMPRESSION: Normal hips. Lumbar degenerative changes. Assessment & Plan - Diagnosis (1) Altered mental status Qualifiers: Altered mental status type: delirium Qualified Code(s): R41.0 - Disorientation, unspecified Is this a current diagnosis for this admission?: Yes Plan: Likely nearing baseling. The patient was admitted after being found down at home by a neighbor/close friend; unclear downtime or cause of fall. Prior to admission, the patient lived independently. No evidence of infection (UA/CXR negative) Head CT revealed possible left parietal scalp hematoma and chronic microvascular ischemia with no acute intracranial findings. LFTs acceptable. Continue supportive care. Continue to correct electrolyte derangements. Avoid sedating medications. Risperidone 0.25 mg every 12 hours as needed anxiety/agitation. The patient has been placed on mirtazapine; may improve underlying/unknown depression as well as support appetite. Fall precautions. PT/OT evaluations; recommendations for SNF placement. Discharge planning is consulted; appreciate their assistance in establishing whether or not the patient has an HC POA. If patient's mental status does not continue to improve and p.o. intake increase , may need to consider hospice referral. (2) Hypokalemia Is this a current diagnosis for this admission?: Yes Plan: Secondary to poor p.o. intake. Refusing p.o. potassium supplementation (liquid and tab). Magnesium normal. Replaced via IV; will monitor chemistries and continue to replace as needed. (3) Anemia Is this a current diagnosis for this admission?: Yes Plan: Resolved. Secondary to hemodilution; patient has received approximately 9 L IV fluids over the course of this admission for correction of dehydration and rhabdomyolysis. No indications of active bleeding. Hgb now 13.5 IV fluids discontinued. We will continue to monitor. (4) Rhabdomyolysis Qualifiers: Rhabdomyolysis type: non-traumatic Qualified Code(s): M62.82 - Rhabdomyolysis Is this a current diagnosis for this admission?: Yes Plan: Improved; CK trending down, no longer monitoring. IV fluids discontinued. Encourage p.o. fluids. Turn/reposition q2 hours; OOB daily with assistance. (5) Hypertension Is this a current diagnosis for this admission?: Yes Plan: Have initiated losartan. IV hydralazine as needed for blood pressure control. (6) At risk for malnutrition Is this a current diagnosis for this admission?: Yes Plan: Patient with low BMI (21.1), loss of subcutaneous fat and muscle, advanced dementia (oriented to self only) with poor p.o. intake since time of admission. 25% of one meal, bites of one meal and otherwise has refused. Has been placed on mirtazapine for appetite support. Unfortunately, patient is also refusing medications: has taken 5 of 22 p.o. med pass attempts. We will consult the registered dietitian for recommendations. (7) Goals of care, counseling/discussion Is this a current diagnosis for this admission?: Yes Plan: Per previous providers notes, the patient has no living next of kin. Discharge planning has been consulted to assist with determining whether or not the patient has a healthcare power of disability attorney. Per note, the patient's neighbor has been assisting in caring for the patient believes that she may have one on file at local home and will assist in contacting the home to verify paperwork. Patient is recommended to be discharged to SNF, may benefit from palliative care /hospice referral. (8) Hypernatremia Is this a current diagnosis for this admission?: Yes Plan: Resolved; secondary to dehydration. (9) Elevated BUN Is this a current diagnosis for this admission?: Yes Plan: Resolved; secondary to dehydration and rhabdomyolysis. - Time Time Spent with patient: 15-24 minutes Medications reviewed and adjusted accordingly: Yes Anticipated discharge: SNF
[2018-03-28] MEDS: MIRTAZAPINE 15 MG TABLET PO SCH (23:36)
[2018-03-29 07:54] LABS: ALANINE AMINOTRANSFERASE 51 U/L (9-52); ALBUMIN 2.9 g/dL (3.5-5.0); ALKALINE PHOSPHATASE 66 U/L (38-126); ANION GAP 13 (5-19); ASPARTATE AMINO TRANSFERASE 59 U/L (14-36); BILIRUBIN,DIRECT 0.4 mg/dL (0.0-0.4); BILIRUBIN,TOTAL 0.8 mg/dL (0.2-1.3); BLOOD UREA NITROGEN 9 mg/dL (7-20); CALCIUM 8.5 mg/dL (8.4-10.2); CARBON DIOXIDE 24 mmol/L (22-30); CHLORIDE 103 mmol/L (98-107); GLUCOSE 69 mg/dL (75-110); HEMATOCRIT 40.1 % (36.0-47.0); HEMOGLOBIN 13.5 g/dL (12.0-15.5); MEAN CORPUSCULAR HEMOGLOBIN 28.3 pg (27.0-33.4); MEAN CORPUSCULAR HGB CONC 33.7 g/dL (32.0-36.0); MEAN CORPUSCULAR VOLUME 84 fl (80-97); PHOSPHORUS 2.4 mg/dL (2.5-4.5); PLATELET COUNT 182 10^3/uL (150-450); RED BLOOD COUNT 4.78 10^6/uL (3.72-5.28); RED CELL DISTRIBUTION WIDTH 14.3 % (11.5-14.0); SODIUM 139.5 mmol/L (137-145); TOTAL PROTEIN 5.9 g/dL (6.3-8.2); WHITE BLOOD COUNT 6.8 10^3/uL (4.0-10.5)
[2018-03-29] MEDS: POLYETHYLENE GLYCOL 3350 POWDER 17 GM/1 PACKET PO SCH (10:41)
[2018-03-29] MEDS: LOSARTAN POTASSIUM 25 MG TABLET PO SCH ×2 (10:42→21:43)
[2018-03-29] MEDS: NA PHOS,M-B/NA PHOS,DI-BA (ADULT) 133 ML ENEMA PR SCH (10:50)
[2018-03-29] MEDS ORDERED: BISACODYL 10 MG SUPP.RECT PR ONE (12:23)
[2018-03-29] MEDS: POTASSIUM CHLORIDE 10 MEQ CAPSULE.ER PO SCH (12:42)
--- NOTE | 2018-03-29 13:13 | PDOC H&P ---
History of Present Illness Admission Date/PCP: 03/23/18 20:58 History of Present Illness: ANDRÉS MCGREGOR is a 87 year old female with a limited past medical history secondary to altered mental status. The patient presented to the emergency department via EMS after being found on the floor by her neighbors. She was last seen approximately 48 hours prior. According to the neighbors, the patient does not have any known medical history, CVA healthcare provider, or have any living relatives. Evaluation in the emergency department revealed rhabdomyolysis, hypernatremia, normal head CT, and benign chest and hip x-ray. She is referred to the hospitalist service for admission. Past Medical History Past Medical History: Unable to obtain secondary to altered mental status. Past Surgical History Past Surgical History: Unable to obtain secondary to altered mental status. Social History Information Source: Friend, Emergency Med Personnel Lives with: Alone Smoking Status: Never Smoker - Advance Directive Resuscitation Status: Do Not Resuscitate Surrogate healthcare decision maker:: Unable to state. Family History Family History: Unable to obtain secondary to altered mental status. Parental Family History Reviewed: No Children Family History Reviewed: No Sibling(s) Family History Reviewed.: No Medication/Allergy Home Medications: No Home Medications 03/23/18 Allergies/Adverse Reactions: No Known Allergies Allergy (Unverified 03/23/18 18:04) Review of Systems ROS unobtainable: Due to mental status Physical Exam Vital Signs: Temp Pulse Resp BP Pulse Ox 97.9 F 79 16 147/70 H 97 03/29/18 11:40 03/29/18 11:40 03/29/18 11:40 03/29/18 11:40 03/29/18 11:40 Intake & Output 03/28/18 03/29/18 03/30/18 06:59 06:59 06:59 Intake Total 1300 255 Balance 1300 255 Weight 46.9 kg 47.1 kg General appearance: PRESENT: no acute distress, hard of hearing, thin, well- developed. ABSENT: cooperative Head exam: PRESENT: atraumatic, normocephalic Eye exam: PRESENT: conjunctiva pink, EOMI, PERRLA. ABSENT: scleral icterus Mouth exam: PRESENT: dry mucosa, tongue midline Respiratory exam: PRESENT: clear to auscultation bettie. ABSENT: rales, rhonchi, wheezes Cardiovascular exam: PRESENT: RRR. ABSENT: diastolic murmur, rubs, systolic murmur Neurological exam: PRESENT: alert, CN II-XII grossly intact, other - Refused to answer questions. ABSENT: motor sensory deficit Psychiatric exam: PRESENT: flat affect - With chronic. ABSENT: homicidal ideation, suicidal ideation Skin exam: PRESENT: dry, intact, warm. ABSENT: cyanosis, rash Results Laboratory Results: 03/29/18 07:00 03/29/18 07:00 03/29/18 03/29/18 07:00 07:00 WBC 6.8 RBC 4.78 Hgb 13.5 Hct 40.1 MCV 84 MCH 28.3 MCHC 33.7 RDW 14.3 H Plt Count 182 Sodium 139.5 Potassium 4.0 Chloride 103 Carbon Dioxide 24 Anion Gap 13 BUN 9 Creatinine 0.46 L Est GFR ( Amer) > 60 Est GFR (Non-Af Amer) > 60 Glucose 69 L Calcium 8.5 Phosphorus 2.4 L Magnesium 1.8 Total Bilirubin 0.8 AST 59 H ALT 51 Alkaline Phosphatase 66 Total Protein 5.9 L Albumin 2.9 L 03/23/18 03/24/18 03/24/18 21:18 03:11 09:16 Creatine Kinase CK-MB (CK-2) 8.06 H 5.61 H 3.64 Troponin I 0.033 0.038 0.028 03/25/18 07:49 Creatine Kinase 1033 H CK-MB (CK-2) Troponin I Impressions: Chest X-Ray 03/23/18 18:01 IMPRESSION: NO ACUTE RADIOGRAPHIC FINDING IN THE CHEST. Head CT 03/23/18 18:01 IMPRESSION: 1. Possible left parietal scalp hematoma. 2. Chronic microvascular ischemia with no acute intracranial imaging findings. EVIDENCE OF ACUTE STROKE: NO. Hip X-Ray 03/23/18 18:01 IMPRESSION: Normal hips. Lumbar degenerative changes. Assessment & Plan - Diagnosis (1) Rhabdomyolysis Qualifiers: Rhabdomyolysis type: non-traumatic Qualified Code(s): M62.82 - Rhabdomyolysis Is this a current diagnosis for this admission?: Yes Plan: Patient was found by neighbors with unknown downtime; last seen greater than 48 hours ago. CK 1262 Provide IV fluids. Encourage p.o. fluids. Turn/reposition q2 hours; OOB daily with assistance. (2) Altered mental status Qualifiers: Altered mental status type: delirium Qualified Code(s): R41.0 - Disorientation, unspecified Is this a current diagnosis for this admission?: Yes Plan: Unclear baseline; likely has some underlying dementia. At time of evaluation the emergency department, the patient was alert and per neighbors speaking clearly but with increased confusion. Noted to be intermittently responding to questions/refusing to speak or participate with care. No evidence of infection (UA/CXR negative) Head CT revealed possible left parietal scalp hematoma and chronic microvascular ischemia with no acute intracranial findings. LFTs acceptable. Continue supportive care. Continue to correct electrolyte derangements. Avoid sedating medications. Risperidone 0.25 mg every 12 hours as needed anxiety/agitation. (3) Hypernatremia Is this a current diagnosis for this admission?: Yes Plan: Secondary to dehydration. Providing IVF; will monitor serial chemistries. (4) Elevated BUN Is this a current diagnosis for this admission?: Yes Plan: Secondary to dehydration and rhabdomyolysis. Providing IVF. - Time Anticipated discharge: SNF - Inpatient Certification Based on my medical assessment, after consideration of the patient's comorbidities, presenting symptoms, or acuity I expect that the services needed warrant INPATIENT care.: Yes I certify that my determination is in accordance with my understanding of Medicare's requirements for reasonable and necessary INPATIENT services [42 CFR 412.3e].: Yes Medical Necessity: Need For IV Fluids
[2018-03-29] MEDS: HEPARIN SOD (PORCINE) 5,000 UNIT/ML 1 ML SYRINGE SUBCUT SCH ×2 (13:29→21:42)
[2018-03-29] MEDS ORDERED: NA PHOS,M-B/NA PHOS,DI-BA (ADULT) 133 ML ENEMA PR ONE (16:52)
--- NOTE | 2018-03-29 17:51 | PDOC PROGRESS REPORT ---
Subjective Progress Note for:: 03/29/18 Subjective:: The patient is an 87-year-old female with limited past medical history secondary to advanced dementia (oriented to self only) unavailability of family members and no previous hospital records. The patient was admitted on 2017 for encephalopathy, hypernatremia, hypokalemia, and rhabdomyolysis. Patient is seen on morning rounds. She is found resting in bed comfortably on room air. She is sleeping when I enter the room and wakes easily when I say her name. She briefly makes eye contact but then closes them tightly and refuses to answer any questions. Per nursing, the patient only ate a few bites last night and none this morning. However, she did take her medications without difficulty. Nursing has no other concerns. There are no friends or family members present at this time. Reason For Visit: ENCEPHALOPATHY HYPERNATREMIA, HYPOKALEMIA Physical Exam Vital Signs: Temp Pulse Resp BP Pulse Ox 97.9 F 79 16 147/70 H 97 03/29/18 11:40 03/29/18 11:40 03/29/18 11:40 03/29/18 11:40 03/29/18 11:40 Intake & Output 03/28/18 03/29/18 03/30/18 06:59 06:59 06:59 Intake Total 1300 255 Balance 1300 255 Weight 46.9 kg 47.1 kg General appearance: PRESENT: no acute distress, hard of hearing, thin, well- developed Head exam: PRESENT: atraumatic, normocephalic Eye exam: PRESENT: conjunctiva pink, EOMI, PERRLA. ABSENT: scleral icterus Ear exam: PRESENT: normal external ear exam Mouth exam: PRESENT: dry mucosa, tongue midline Neck exam: ABSENT: carotid bruit, JVD, lymphadenopathy, thyromegaly Respiratory exam: PRESENT: clear to auscultation bettie, symmetrical, unlabored. ABSENT: rales, rhonchi, wheezes Cardiovascular exam: PRESENT: RRR. ABSENT: diastolic murmur, rubs, systolic murmur Pulses: PRESENT: normal dorsalis pedis pul Vascular exam: PRESENT: normal capillary refill GI/Abdominal exam: PRESENT: hypoactive bowel sounds, soft. ABSENT: distended, guarding, mass, organolmegaly, rebound, tenderness Rectal exam: PRESENT: deferred Extremities exam: PRESENT: full ROM. ABSENT: calf tenderness, clubbing, pedal edema Neurological exam: PRESENT: alert, CN II-XII grossly intact, other - Limited secondary to patient participation. ABSENT: motor sensory deficit Psychiatric exam: PRESENT: other - withdrawan Skin exam: PRESENT: dry, warm, other - Ecchymosis with fluid-filled vesicles to left hip and left shoulder blade; dressing intact.. ABSENT: cyanosis, rash Results Laboratory Results: 03/29/18 07:00 03/29/18 07:00 03/29/18 03/29/18 07:00 07:00 WBC 6.8 RBC 4.78 Hgb 13.5 Hct 40.1 MCV 84 MCH 28.3 MCHC 33.7 RDW 14.3 H Plt Count 182 Sodium 139.5 Potassium 4.0 Chloride 103 Carbon Dioxide 24 Anion Gap 13 BUN 9 Creatinine 0.46 L Est GFR ( Amer) > 60 Est GFR (Non-Af Amer) > 60 Glucose 69 L Calcium 8.5 Phosphorus 2.4 L Magnesium 1.8 Total Bilirubin 0.8 AST 59 H ALT 51 Alkaline Phosphatase 66 Total Protein 5.9 L Albumin 2.9 L 03/23/18 03/24/18 03/24/18 21:18 03:11 09:16 Creatine Kinase CK-MB (CK-2) 8.06 H 5.61 H 3.64 Troponin I 0.033 0.038 0.028 03/25/18 07:49 Creatine Kinase 1033 H CK-MB (CK-2) Troponin I Impressions: Chest X-Ray 03/23/18 18:01 IMPRESSION: NO ACUTE RADIOGRAPHIC FINDING IN THE CHEST. Head CT 03/23/18 18:01 IMPRESSION: 1. Possible left parietal scalp hematoma. 2. Chronic microvascular ischemia with no acute intracranial imaging findings. EVIDENCE OF ACUTE STROKE: NO. Hip X-Ray 03/23/18 18:01 IMPRESSION: Normal hips. Lumbar degenerative changes. Assessment & Plan - Diagnosis (1) Altered mental status Qualifiers: Altered mental status type: delirium Qualified Code(s): R41.0 - Disorientation, unspecified Is this a current diagnosis for this admission?: Yes Plan: Stable; likely near baseline. Intermittently refusing to speak, follow directions, and take medications. The patient was admitted after being found down at home by a neighbor/close friend; unclear downtime or cause of fall. Prior to admission, the patient lived independently. No evidence of infection (UA/CXR negative) Head CT revealed possible left parietal scalp hematoma and chronic microvascular ischemia with no acute intracranial findings. LFTs acceptable. Continue supportive care. Avoid sedating medications. Risperidone 0.25 mg every 12 hours as needed anxiety/agitation. The patient has been placed on mirtazapine; may improve underlying/unknown depression as well as support appetite. Fall precautions. PT/OT evaluations; recommendations for SNF placement. Discharge planning is consulted; appreciate their assistance in establishing whether or not the patient has an HC POA. If patient's mental status does not continue to improve and p.o. intake increase , may need to consider hospice referral. (2) Hypertension Is this a current diagnosis for this admission?: Yes Plan: Slightly improved with losartan; BP today 147/70 IV hydralazine as needed for blood pressure control. (3) At risk for malnutrition Is this a current diagnosis for this admission?: Yes Plan: Patient with low BMI (21.1), loss of subcutaneous fat and muscle, advanced dementia (oriented to self only) with poor p.o. intake since time of admission. 25% of one meal, bites of two meals and otherwise has refused. Has been placed on mirtazapine for appetite support. Unfortunately, patient is also refusing medications during most attempts. We will consult the registered dietitian for recommendations. (4) Goals of care, counseling/discussion Is this a current diagnosis for this admission?: Yes Plan: Per previous providers notes, the patient has no living next of kin. Discharge planning has been consulted to assist with determining whether or not the patient has a healthcare power of casing worker. Per note, the patient's neighbor has been assisting in caring for the patient believes that she may have one on file at local home and will assist in contacting the home to verify paperwork. Patient is recommended to be discharged to SNF. Palliative care met with patient, however, refused to discuss goals of care. (5) Rhabdomyolysis Qualifiers: Rhabdomyolysis type: non-traumatic Qualified Code(s): M62.82 - Rhabdomyolysis Is this a current diagnosis for this admission?: Yes Plan: Improved; CK trended down. No longer monitoring. Patient received IV fluids with correction of her electrolytes. Encouraging p.o. fluids. Turn/reposition every 2 hours; out of bed daily with assistance. (6) Anemia Is this a current diagnosis for this admission?: Yes Plan: Resolved. Secondary to hemodilution; patient has received approximately 9 L IV fluids over the course of this admission for correction of dehydration and rhabdomyolysis. No indications of active bleeding. Hgb now 13.5 (7) Elevated BUN Is this a current diagnosis for this admission?: Yes Plan: Resolved; Secondary to dehydration and rhabdomyolysis. (8) Hypernatremia Is this a current diagnosis for this admission?: Yes Plan: Resolved; secondary to dehydration. (9) Hypokalemia Is this a current diagnosis for this admission?: Yes Plan: Replete. - Time Time Spent with patient: 15-24 minutes Medications reviewed and adjusted accordingly: Yes Anticipated discharge: SNF Within: within 24 hours
[2018-03-29] MEDS: MIRTAZAPINE 15 MG TABLET PO SCH (21:43)
[2018-03-30] MEDS: HEPARIN SOD (PORCINE) 5,000 UNIT/ML 1 ML SYRINGE SUBCUT SCH ×2 (05:28→13:57)
[2018-03-30] MEDS: POLYETHYLENE GLYCOL 3350 POWDER 17 GM/1 PACKET PO SCH (10:29)
[2018-03-30] MEDS: NA PHOS,M-B/NA PHOS,DI-BA (ADULT) 133 ML ENEMA PR SCH (10:29)
[2018-03-30] MEDS: LOSARTAN POTASSIUM 25 MG TABLET PO SCH (10:29)
[2018-03-30] MEDS: POTASSIUM CHLORIDE 10 MEQ CAPSULE.ER PO SCH (11:32)
--- NOTE | 2018-03-30 14:15 | PDOC TRANSFER SUMMARY ---
General - Admit/Disc Date/PCP Admission Date/Primary Care Provider: 03/23/18 20:58 Discharge Date: 03/30/18 - Discharge Diagnosis (1) Altered mental status Is this a current diagnosis for this admission?: Yes Summary: Stable; likely near baseline. Intermittently refusing to speak, follow directions, and take medications. Otherwise, she is pleasantly confused. Initial decreased mental status was likely metabolic encephalopathy secondary to dehydration, hypernatremia, and rhabdomyolysis. No evidence of infection (UA/CXR negative) Head CT revealed possible left parietal scalp hematoma and chronic microvascular ischemia with no acute intracranial findings. LFTs acceptable. At time of discharge, the patient is in stable condition, maintaining oxygen saturations on room air, tolerating a regular diet (although, with little p.o. intake throughout admission), and pain free. Psychology has been consulted for capacity screening; their finalized report is pending. APS referral has been made for appropriate follow-up. The patient is discharged to SNF for continued care. She will benefit from outpatient Palliative Care follow-up. (2) Hypertension Is this a current diagnosis for this admission?: Yes Summary: Improvement with addition of losartan 25 mg twice daily; blood pressures today are 159/85 which is down from 182/89. The patient does continue to intermittently refuse p.o. medications which is hampering adequate blood pressure control. Clonidine patch was considered, however, was not implemented due to potential sedation. She may benefit from addition of amlodipine. She will require continued monitoring and medication adjustments by PCP. (3) At risk for malnutrition Is this a current diagnosis for this admission?: Yes Summary: Patient with low BMI (21.1), loss of subcutaneous fat and muscle, advanced dementia (oriented to self only) with poor p.o. intake since time of admission. She has been placed on mirtazapine for appetite support. (4) Goals of care, counseling/discussion Is this a current diagnosis for this admission?: Yes Summary: Previous provider's notes, and patient's visiting friends, indicate that there is no living next of kin. There is a report of POA paperwork, but despite multiple requests, this has not been made available. Psychology has been consulted for capacity screening; their finalized report is pending. APS referral has been made for appropriate follow-up. (5) Rhabdomyolysis Is this a current diagnosis for this admission?: Yes Summary: Secondary to fall at home with unknown downtime. Pt was provided IV fluid resuscitation; CK trended downward. (6) Anemia Is this a current diagnosis for this admission?: Yes Summary: Resolved. Secondary to hemodilution; patient has received approximately 9 L IV fluids over the course of this admission for correction of dehydration and rhabdomyolysis. No indications of active bleeding. Hgb now stable at 13.5 (7) Elevated BUN Is this a current diagnosis for this admission?: Yes Summary: Resolved with IVF; Secondary to dehydration and rhabdomyolysis. (8) Hypernatremia Is this a current diagnosis for this admission?: Yes Summary: Resolved with IVF; Secondary to dehydration and rhabdomyolysis. (9) Hypokalemia Is this a current diagnosis for this admission?: Yes Summary: Replete. - Additional Information Resuscitation Status: Do Not Resuscitate Discharge Diet: As Tolerated Discharge Activity: Activity As Tolerated, Supervised Activity Prescriptions: Losartan Potassium [Cozaar 25 mg Tablet] 25 mg PO Q12 #60 tablet Mirtazapine [Remeron 15 mg Tablet] 15 mg PO QHS #30 tablet Polyethylene Glycol 3350 [Miralax Powder 17 gm/Packet] 17 gm PO DAILY #30 powd.pack Home Medications: Acetaminophen [Tylenol 325 mg Tablet] 650 mg PO Q6HP PRN tablet 03/30/18 Losartan Potassium [Cozaar 25 mg Tablet] 25 mg PO Q12 #60 tablet 03/30/18 Mirtazapine [Remeron 15 mg Tablet] 15 mg PO QHS #30 tablet 03/30/18 Na Phos,M-B/Na Phos,Di-Ba [Fleet Enema (Adult) 133 ml] 133 ml OH DAILYP PRN enema 03/30/18 Polyethylene Glycol 3350 [Miralax Powder 17 gm/Packet] 17 gm PO DAILY #30 powd.pack 03/30/18 History of Present Illness Admission Date/PCP: 03/23/18 20:58 History of Present Illness: ANDRÉS MCGREGOR is a 87 year old female with a limited past medical history secondary to altered mental status. The patient presented to the emergency department via EMS after being found on the floor by her neighbors. She was last seen approximately 48 hours prior. According to the neighbors, the patient does not have any known medical history, CVA healthcare provider, or have any living relatives. Evaluation in the emergency department revealed rhabdomyolysis, hypernatremia, normal head CT, and benign chest and hip x-ray. She is referred to the hospitalist service for admission. Physical Exam Vital Signs: Temp Pulse Resp BP Pulse Ox 98.3 F 93 12 167/86 H 99 03/30/18 11:16 03/30/18 11:16 03/30/18 11:16 03/30/18 11:16 03/30/18 11:16 Intake & Output 03/29/18 03/30/18 03/31/18 06:59 06:59 06:59 Intake Total 255 193 Balance 255 193 Weight 47.1 kg 48.7 kg General appearance: PRESENT: no acute distress, hard of hearing, thin, well- developed Head exam: PRESENT: atraumatic, normocephalic Eye exam: PRESENT: conjunctiva pink, EOMI, PERRLA. ABSENT: scleral icterus Ear exam: PRESENT: normal external ear exam Mouth exam: PRESENT: moist, tongue midline Neck exam: ABSENT: carotid bruit, JVD, lymphadenopathy, thyromegaly Respiratory exam: PRESENT: clear to auscultation bettie, symmetrical, unlabored. ABSENT: rales, rhonchi, wheezes Cardiovascular exam: PRESENT: RRR, +S1, +S2. ABSENT: diastolic murmur, rubs, systolic murmur Pulses: PRESENT: normal dorsalis pedis pul Vascular exam: PRESENT: normal capillary refill GI/Abdominal exam: PRESENT: normal bowel sounds, soft. ABSENT: distended, guarding, mass, organolmegaly, rebound, tenderness Rectal exam: PRESENT: deferred Extremities exam: PRESENT: full ROM. ABSENT: calf tenderness, clubbing, pedal edema Neurological exam: PRESENT: alert, awake, oriented to person, CN II-XII grossly intact. ABSENT: oriented to place, oriented to time, oriented to situation, motor sensory deficit Psychiatric exam: PRESENT: other - Withdrawn. ABSENT: homicidal ideation, suicidal ideation Skin exam: PRESENT: dry, intact, warm. ABSENT: cyanosis, rash Results Laboratory Results: 03/29/18 07:00 03/29/18 07:00 03/23/18 03/24/18 03/24/18 21:18 03:11 09:16 Creatine Kinase CK-MB (CK-2) 8.06 H 5.61 H 3.64 Troponin I 0.033 0.038 0.028 03/25/18 07:49 Creatine Kinase 1033 H CK-MB (CK-2) Troponin I Impressions: Chest X-Ray 03/23/18 18:01 IMPRESSION: NO ACUTE RADIOGRAPHIC FINDING IN THE CHEST. Head CT 03/23/18 18:01 IMPRESSION: 1. Possible left parietal scalp hematoma. 2. Chronic microvascular ischemia with no acute intracranial imaging findings. EVIDENCE OF ACUTE STROKE: NO. Hip X-Ray 03/23/18 18:01 IMPRESSION: Normal hips. Lumbar degenerative changes. Transfer Plan - Time Spent with Patient Time spent with patient: Less than 30 Minutes Qualifiers - * PATIENT BEING DISCHARGED WITH ANY OF THE FOLLOWING DIAGNOSIS: No Plan Discharge Plan: Discharge to SNF. Follow-up with primary care doctor within 1 week. APS referral has been established; follow-up with [facility] as appropriate. Time Spent: Greater than 30 Minutes
[2018-03-30 20:51] VITALS: BP 131/65
== END 2018-03-30 20:56 | DRG 640 ==
LOC: ER 17:01 → MERGE 20:58 → EH 20:58 → 5 22:19
PROVIDERS: ADMIT Internal Medicine; ATTEND Internal Medicine
DX: E87.0 Hyperosmolality and hypernatremia (principal); G93.41 Metabolic encephalopathy; M62.82 Rhabdomyolysis; E87.6 Hypokalemia; I10 Essential (primary) hypertension; E86.0 Dehydration; M25.552 Pain in left hip; D64.89 Other specified anemias; F03.90 Unspecified dementia, unspecified severity, without behavioral disturbance, psychotic disturbance, mood disturbance, and anxiety; S00.03XA Contusion of scalp, initial encounter; W19.XXXA Unspecified fall, initial encounter; Y93.9 Activity, unspecified; Y92.019 Unspecified place in single-family (private) house as the place of occurrence of the external cause; Z60.2 Problems related to living alone
CPT/HCPCS: 36415; 70450; 71045; 73522; 80048; 80053; 80307; 81001; 82550; 82553; 82962; 83735; 84100; 84443; 84484; 85025; 85027; 93005; 93010; 96360; 99285; G8978-GP; G8979-GP; J1644; J3480; J3490; J7030; J7040

== ENCOUNTER 2018-04-03 14:57 | Inpatient (IN) | payer MEDICARE, OTHER ==
[2018-04-03] MEDS ORDERED: NORMAL SALINE 1000 ML 1,000 ML IV ONE (15:30)
--- NOTE | 2018-04-03 15:50 | RADIOLOGY REPORT (SQ) ---
EXAM DESCRIPTION: CHEST SINGLE VIEW COMPLETED DATE/TIME: 04/03/2018 3:39 pm REASON FOR STUDY: Weakness COMPARISON: None. NUMBER OF VIEWS: One view. TECHNIQUE: Single frontal radiographic view of the chest acquired. LIMITATIONS: None. FINDINGS: LUNGS AND PLEURA: No opacities, masses or pneumothorax. No pleural effusion. Attenuated bl ood vessels and flattened pradeep-diaphragms. MEDIASTINUM AND HILAR STRUCTURES: No masses. Contour normal. HEART AND VASCULAR STRUCTURES: Heart normal in size. Normal vasculature. BONES: No acute findings. HARDWARE: None in the chest. OTHER: No other significant finding. IMPRESSION: COPD. NO ACUTE RADIOGRAPHIC FINDING IN THE CHEST. TECHNICAL DOCUMENTATION: JOB ID: [id number] [employer]- All Rights Reserved Reading location - IP/workstation name: [email or web address]-[email or web address]
--- NOTE | 2018-04-03 16:23 | ER Document Report ---
ED General - General Chief Complaint: Altered Mental Status Stated Complaint: FAILURE TO THRIVE Time Seen by Provider: 04/03/18 15:26 Notes: Patient is here because she is unable to walk. Patient was just an inpatient at this hospital and discharged on to a rehab facility at [facility]. She was evaluated here in the hospital for a week for dehydration. Since she went to [facility], patient has not been eating or drinking anything, according to the family. She said her throat hurt today. Says she is having difficulty swallowing. Until she came into the hospital here on this most recent admission, patient had been ambulatory at home, but she is no longer walking. Her voice has been normal, but family says that she has not talked much since yesterday. Has not had any fever. TRAVEL OUTSIDE OF THE [place] IN LAST 30 DAYS: No - Related Data Allergies/Adverse Reactions: No Known Allergies Allergy (Verified 04/03/18 17:13) Past Medical History - Social History Smoking Status: Unknown if Ever Smoked Family History: Reviewed & Not Pertinent - Past Medical History Cardiac Medical History: Reports: Hx Hypertension Neurological Medical History: Denies: Hx Cerebrovascular Accident Endocrine Medical History: Denies: Hx Diabetes Mellitus Type 1, Hx Diabetes Mellitus Type 2 Review of Systems - Review of Systems Notes: REVIEW OF SYSTEMS: Mostly per family members. CONSTITUTIONAL : Denies fever. EENT: Denies eye, ear, nose or mouth or throat pain or other symptoms. No history of head injury. CARDIOVASCULAR: Denies chest pain. RESPIRATORY: Denies cough, chest congestion, or shortness of breath. GASTROINTESTINAL: Denies abdominal pain or nausea, vomiting, or diarrhea. GENITOURINARY: Denies difficulty or painful urinating, urinary frequency, blood in urine. MUSCULOSKELETAL: Denies back or neck pain. Denies joint pain or swelling. SKIN: Denies rash or skin lesions. NEUROLOGICAL: Has had altered mental status. Denies sensory loss or motor deficits. ALL OTHER SYSTEMS REVIEWED AND NEGATIVE. -: Yes ROS unobtainable due to patient's medical condition Physical Exam - Vital signs Vitals: Temp Pulse Resp BP Pulse Ox 97.7 F 90 15 146/76 H 98 04/03/18 15:01 04/03/18 15:01 04/03/18 15:01 04/03/18 15:01 04/03/18 15:01 Interpretation: Normal - Notes Notes: PHYSICAL EXAMINATION: GENERAL: Well-appearing, in no acute distress. Vital signs are all essentially normal. HEAD: Atraumatic, normocephalic. EYES: Pupils equal round and reactive to light, extraocular movements intact. ENT: oropharynx with some streaks of erythema on both sides. No soft tissue swelling. No obstruction of the airway observed. Patient has thick secretions in her mouth which suggestion is to swallow or rinse her mouth out. No fluctuance in the posterior soft tissue felt with my fingertip. Clear without exudates. Moist mucous membranes. Patient speaks very softly, but does not sound hoarse and does not appear to be in pain to talk or move her neck. Externally, patient does not have any significant soft tissue swelling in the neck or submandibular region. NECK: Normal range of motion, supple. LUNGS: Breath sounds clear and equal bilaterally. HEART: Regular rate and rhythm without murmurs. ABDOMEN: Soft, nontender. No guarding or rebound. No masses. BACK: No tenderness throughout entire back. EXTREMITIES: Normal range of motion without pain. NEUROLOGICAL: Normal speech, normal gait. Normal sensory, motor, and reflex exams. Awake, alert, and oriented x3. Cranial nerves normal. PSYCH: Normal mood, normal affect. SKIN: Warm, dry, no rashes. Course - Re-evaluation Re-evalutation: 04/03/18 19:04 Lab results suggest a UTI, and infection with bands in her CBC, high ketones in her urine suggest dehydration. Spoke with the hospitalist on, , who agrees to admit the patient. - Vital Signs Vital signs: Temp Pulse Resp BP Pulse Ox 97.7 F 90 15 146/76 H 98 04/03/18 15:01 04/03/18 15:01 04/03/18 15:01 04/03/18 15:01 04/03/18 15:01 - Laboratory Result Diagrams: 04/03/18 16:20 04/03/18 16:20 Laboratory results interpreted by me: 04/03/18 04/03/18 04/03/18 16:20 16:20 17:00 WBC 11.8 H RDW 14.5 H Band Neutrophils % 11 H Lymphocytes % (Manual) 9 L Abs Neuts (Manual) 10.1 H BUN 23 H Creatinine 0.46 L Glucose 111 H Total Bilirubin 1.6 H Direct Bilirubin 1.0 H Albumin 3.4 L Urine Protein 100 H Urine Ketones 80 H Urine Blood MODERATE H Urine Bilirubin SMALL H Urine Urobilinogen 4.0 H - Diagnostic Test Radiology results interpreted by me: 04/03/18 19:05 Chest x-ray shows COPD but no acute processes. - EKG Interpretation by Me EKG shows normal: Sinus rhythm Rate: Normal - At 86. Rhythm: NSR Discharge - Discharge Clinical Impression: UTI (urinary tract infection), Dehydration, Leukocytosis, Weakness Condition: Stable Disposition: ADMITTED INPATIENT Admitting Provider: Hospitalist Unit Admitted: Medical Floor Referrals: LOCALMD,NO [NO LOCAL MD] - Follow up as needed
[2018-04-03 17:08] LABS: HEMATOCRIT 38.2 % (36.0-47.0); HEMOGLOBIN 12.6 g/dL (12.0-15.5); MEAN CORPUSCULAR HEMOGLOBIN 28.2 pg (27.0-33.4); MEAN CORPUSCULAR VOLUME 86 fl (80-97); PLATELET COUNT 343 10^3/uL (150-450); RED BLOOD COUNT 4.47 10^6/uL (3.72-5.28); RED CELL DISTRIBUTION WIDTH 14.5 % (11.5-14.0); WHITE BLOOD COUNT 11.8 10^3/uL (4.0-10.5)
[2018-04-03 17:16] LABS: ALANINE AMINOTRANSFERASE 37 U/L (9-52); ALBUMIN 3.4 g/dL (3.5-5.0); ALKALINE PHOSPHATASE 85 U/L (38-126); ANION GAP 18 (5-19); ASPARTATE AMINO TRANSFERASE 25 U/L (14-36); BILIRUBIN,TOTAL 1.6 mg/dL (0.2-1.3); BLOOD UREA NITROGEN 23 mg/dL (7-20); CALCIUM 9.3 mg/dL (8.4-10.2); CARBON DIOXIDE 22 mmol/L (22-30); CHLORIDE 101 mmol/L (98-107); GLUCOSE 111 mg/dL (75-110); LIPASE 109.7 U/L (23-300); POTASSIUM 3.6 mmol/L (3.6-5.0); SODIUM 141.1 mmol/L (137-145)
[2018-04-03 17:29] LABS: ABSOLUTE LYMPHOCYTES# (MANUAL) 1.1 10^3/uL (0.5-4.7); ABSOLUTE MONOCYTES # (MANUAL) 0.6 10^3/uL (0.1-1.4); ABSOLUTE NEUTROPHILS# (MANUAL) 10.1 10^3/uL (1.7-8.2); BAND NEUTROPHILS % (MANUAL) 11 % (3-5); BASOPHILS % (MANUAL) 0 % (0-2); EOSINOPHILS % (MANUAL) 0 % (0-6); LYMPHOCYTES % (MANUAL) 9 % (13-45); MONOCYTES % (MANUAL) 5 % (3-13); OVALOCYTES SLIGHT; PLATELET COMMENT ADEQUATE; POIKILOCYTOSIS 1+; POLYCHROMASIA SLIGHT; SCHISTOCYTES SLIGHT; SEGMENTED NEUTROPHILS % (MAN) 75 % (42-78); TOTAL CELLS COUNTED 100; TOXIC GRANULATION SLIGHT; TOXIC VACUOLATION PRESENT
[2018-04-03 17:43] LABS: APPEARANCE,URINE SLIGHTLY-CLOUDY; BILIRUBIN,URINE SMALL (NEGATIVE); COLOR,URINE AMBER; GLUCOSE, URINE NEGATIVE (NEGATIVE); KETONES,URINE 80 mg/dL (NEGATIVE); LEUKOCYTE ESTERASE,URINE NEGATIVE (NEGATIVE); NITRITE,URINE NEGATIVE (NEGATIVE); PROTEIN,URINE 100 mg/dL (NEGATIVE); URINE SPECIFIC GRAVITY 1.027
[2018-04-03] MEDS ORDERED: CEFTRIAXONE INJ 1000 MG VIAL IV ONE (18:39)
[2018-04-03] MEDS ORDERED: PROMETHAZINE HCL INJ 25 MG/1 ML VIAL IV PRN (20:30)
[2018-04-03] MEDS ORDERED: ACETAMINOPHEN 325 MG TABLET PO PRN (20:30)
[2018-04-03] MEDS ORDERED: MAG HYDROX/AL HYDROX/SIMETH SUSP 30 ML UDCUP PO PRN (20:30)
[2018-04-03] MEDS ORDERED: NORMAL SALINE 1000 ML 2,000 ML IV ONE (21:00)
[2018-04-03] MEDS: HEPARIN SOD (PORCINE) 5,000 UNIT/ML 1 ML SYRINGE SUBCUT SCH (21:49)
--- NOTE | 2018-04-03 22:06 | EKG REPORT ---
SEVERITY:- BORDERLINE ECG - SINUS RHYTHM BORDERLINE T ABNORMALITIES, ANT-LAT LEADS : Confirmed by: Valencia Nguyen MD 03-Apr-2018 22:05:15
[2018-04-03] MEDS ORDERED: PANTOPRAZOLE SODIUM 40 MG VIAL IV ONE (22:30)
--- NOTE | 2018-04-03 22:47 | PDOC H&P ---
History of Present Illness Admission Date/PCP: 04/03/18 19:38 Patient complains of: Altered mental status History of Present Illness: CINDI MCGREGOR is a 87 year old female [facility] was unable to [facility]. She was admitted in some hospital and discharge on to the rehab facility, we do not have the records. The ED attending lesion and the patient was evaluated here for dehydration and discharge facility but I do not see any records. Apparently since her discharge the patient has been unable to drink or eat anything and her mental status has been deteriorating. In the emergency become follow simple commands but she cannot tell me any history. Apparently patient has been complaining of sore throat and a swab for strep was done in the ED which came back negative. Urinalysis came back positive for UTI, she has leukocytosis with 11% bands and toxic granulations previous chest x-ray with no infiltrates. Order IV fluids and Rocephin in the ED. Unfortunately no further information can be obtained at this time. Past Medical History Cardiac Medical History: Reports: Hypertension Endocrine Medical History: Denies: Diabetes Mellitus Type 1, Diabetes Mellitus Type 2 Social History Smoking Status: Unknown if Ever Smoked Family History Family History: Reviewed & Not Pertinent Parental Family History Reviewed: No Children Family History Reviewed: NA Sibling(s) Family History Reviewed.: NA Medication/Allergy Home Medications: No Home Medications 10/29/15 Allergies/Adverse Reactions: No Known Allergies Allergy (Verified 04/03/18 17:13) Review of Systems Review of Systems: Unable to obtain as the patient can barely communicate with me Physical Exam Vital Signs: Temp Pulse Resp BP Pulse Ox 97.7 F 90 22 H 120/60 98 04/03/18 15:01 04/03/18 15:01 04/03/18 19:41 04/03/18 19:41 04/03/18 19:41 Intake & Output 04/02/18 04/03/18 04/04/18 06:59 06:59 06:59 Intake Total 1000 Balance 1000 Additional comments: General appearance: Disheveled, cachectic, ill looking, lethargic, and appears to be in no acute distress Head: Normocephalic Eyes: PEERL, EOMI, vision is grossly intact. Ears: External auditory canal and tympanic membranes clear, hearing grossly intact. Nose: No nasal discharge. Throat: Oral cavity and pharynx very dry. No inflammation, swelling, exudate or lesions. Poor dentitition Neck: Neck supple, nontender without lymphadenopathy, masses or thyromegaly. Cardiac: Normal S1 and S2. No S3, S4 or murmurs. Rhythm is regular and tachycardic. There is no peripheral edema, cyanosis or pallor. Extremities are warm and well perfused. Capillary refill is less than 2 seconds. No carotid bruits. Lungs: Clear to auscultation and percussion without rales, rhonchi, wheezing or diminished breath sounds, very poor inspiratory effort. Not using accessory muscles. Abdomen: Positive bowel sounds. Soft. Nondistended, diffuse tenderness more in the suprapubic area. No guarding or rebound. No masses. No hepatosplenomegaly Extremities: No significant deformity or joint abnormality. No edema. Peripheral pulses intact. No varicosities. Neurological: Cranial nerves II through XII grossly intact. Strength and sensation able to evaluate Skin: Skin pale color, texture and turgor is dry with no lesions or eruptions, warm and dry. Psychiatric: The mental examination revealed the patient was oriented to person , unable to answer other questions Results Laboratory Results: 04/03/18 04/03/18 04/03/18 16:20 16:20 16:20 WBC 11.8 H Hgb 12.6 Hct 38.2 Plt Count 343 Band Neutrophils % 11 H Lymphocytes % (Manual) 9 L Abs Neuts (Manual) 10.1 H Toxic Granulation SLIGHT Toxic Vacuolation PRESENT Polychromasia SLIGHT Poikilocytosis 1+ Sodium 141.1 Potassium 3.6 Chloride 101 Carbon Dioxide 22 Anion Gap 18 BUN 23 H Creatinine 0.46 L Est GFR ( Amer) > 60 Est GFR (Non-Af Amer) > 60 Glucose 111 H Calcium 9.3 Total Bilirubin 1.6 H Direct Bilirubin 1.0 H AST 25 ALT 37 Alkaline Phosphatase 85 Total Protein 7.0 Albumin 3.4 L Lipase 109.7 Urine Color Urine Appearance Urine pH Ur Specific Trenary Urine Protein Urine Glucose (UA) Urine Ketones Urine Blood Urine Nitrite Urine Bilirubin Urine Urobilinogen Ur Leukocyte Esterase Urine WBC (Auto) Urine RBC (Auto) Urine Bacteria (Auto) Squamous Epi Cells Auto Urine Mucus (Auto) Urine Ascorbic Acid Group A Strep Rapid NEGATIVE 04/03/18 17:00 WBC Hgb Hct Plt Count Band Neutrophils % Lymphocytes % (Manual) Abs Neuts (Manual) Toxic Granulation Toxic Vacuolation Polychromasia Poikilocytosis Sodium Potassium Chloride Carbon Dioxide Anion Gap BUN Creatinine Est GFR ( Amer) Est GFR (Non-Af Amer) Glucose Calcium Total Bilirubin Direct Bilirubin AST ALT Alkaline Phosphatase Total Protein Albumin Lipase Urine Color LEWIS Urine Appearance SLIGHTLY-CLOUDY Urine pH 5.0 Ur Specific Trenary 1.027 Urine Protein 100 H Urine Glucose (UA) NEGATIVE Urine Ketones 80 H Urine Blood MODERATE H Urine Nitrite NEGATIVE Urine Bilirubin SMALL H Urine Urobilinogen 4.0 H Ur Leukocyte Esterase NEGATIVE Urine WBC (Auto) 3 Urine RBC (Auto) 4 Urine Bacteria (Auto) 1+ Squamous Epi Cells Auto 2 Urine Mucus (Auto) MANY Urine Ascorbic Acid NEGATIVE Group A Strep Rapid Impressions: Chest X-Ray 04/03/18 15:27 IMPRESSION: COPD. NO ACUTE RADIOGRAPHIC FINDING IN THE CHEST. Assessment & Plan - Diagnosis (1) Sepsis Qualifiers: Sepsis type: sepsis due to unspecified organism Qualified Code(s): A41.9 - Sepsis, unspecified organism Is this a current diagnosis for this admission?: Yes Plan: Patient meets the criteria with tachycardia, bandemia with toxic granulations despite being white blood cells 11.8, possible focus of infection (2) UTI (urinary tract infection) Qualifiers: Urinary tract infection type: site unspecified Is this a current diagnosis for this admission?: Yes Plan: Patient comes from a rehab facility with changes in mental status, very abnormal urine, however negative leukocyte esterase and nitrates. We will treat the patient has sepsis secondary to UTI with IV Rocephin. Chest x-ray was negative. Please follow blood cultures and urine cultures. Patient will receive aggressive IV fluid hydration as she looks severely dehydrated, initially with 2 L saline bolus followed by 100 cc/h until the morning. Lactic acid in the morning. (3) Encephalopathy Is this a current diagnosis for this admission?: Yes Plan: Likely metabolic encephalopathy secondary to sepsis and UTI. Is unknown to me at her baseline mental status apparently she has been ambulatory at home before her last admission to unknown hospital. We will do neuro checks overnight. (4) DNR (do not resuscitate) Is this a current diagnosis for this admission?: Yes (5) COPD (chronic obstructive pulmonary disease) Is this a current diagnosis for this admission?: Yes Plan: As per chest x-ray, she has COPD, no infiltrates vascular congestion. - Time Time Spent: 30 to 50 Minutes - Inpatient Certification Based on my medical assessment, after consideration of the patient's comorbidities, presenting symptoms, or acuity I expect that the services needed warrant INPATIENT care.: Yes I certify that my determination is in accordance with my understanding of Medicare's requirements for reasonable and necessary INPATIENT services [42 CFR 412.3e].: Yes Medical Necessity: Need Close Monitoring Due to Risk of Patient Decompensation - Plan Summary Plan Summary: We will need more information when family comes to the hospital. Right now is very limited.
[2018-04-04] MEDS: HEPARIN SOD (PORCINE) 5,000 UNIT/ML 1 ML SYRINGE SUBCUT SCH ×4 (05:18→22:48)
[2018-04-04 07:11] LABS: ABSOLUTE EOSINOPHILS # (AUTO) 0.1 10^3/uL (0.0-0.6); ABSOLUTE LYMPHOCYTES (AUTO) 0.6 10^3/uL (0.5-4.7); ABSOLUTE MONOCYTES (AUTO) 0.4 10^3/uL (0.1-1.4); ABSOLUTE NEUT (AUTO) 8.7 10^3/uL (1.7-8.2); BASOPHILS % (AUTO) 0.2 % (0-2); EOSINOPHILS % (AUTO) 0.6 % (0-6); HEMATOCRIT 32.2 % (36.0-47.0); HEMOGLOBIN 10.8 g/dL (12.0-15.5); LYMPHOCYTES % (AUTO) 6.1 % (13-45); MEAN CORPUSCULAR HEMOGLOBIN 28.7 pg (27.0-33.4); MEAN CORPUSCULAR HGB CONC 33.6 g/dL (32.0-36.0); MEAN CORPUSCULAR VOLUME 86 fl (80-97); MONOCYTES % (AUTO) 3.9 % (3-13); PLATELET COUNT 307 10^3/uL (150-450); RED BLOOD COUNT 3.77 10^6/uL (3.72-5.28); RED CELL DISTRIBUTION WIDTH 14.6 % (11.5-14.0); SEGMENTED NEUTROPHILS % (AUTO) 89.2 % (42-78); TOTAL CELLS COUNTED % (AUTO) 100 %; WHITE BLOOD COUNT 9.7 10^3/uL (4.0-10.5)
[2018-04-04 07:20] LABS: PROTHROMBIN TIME 13.7 SEC (11.4-15.4)
[2018-04-04 07:31] LABS: ALANINE AMINOTRANSFERASE 30 U/L (9-52); ALBUMIN 2.6 g/dL (3.5-5.0); ALKALINE PHOSPHATASE 68 U/L (38-126); ANION GAP 13 (5-19); ASPARTATE AMINO TRANSFERASE 21 U/L (14-36); BILIRUBIN,DIRECT 0.6 mg/dL (0.0-0.4); BLOOD UREA NITROGEN 18 mg/dL (7-20); CALCIUM 8.3 mg/dL (8.4-10.2); CARBON DIOXIDE 20 mmol/L (22-30); CHLORIDE 110 mmol/L (98-107); GLUCOSE 81 mg/dL (75-110); PHOSPHORUS 2.3 mg/dL (2.5-4.5); SODIUM 143.2 mmol/L (137-145); TOTAL PROTEIN 5.6 g/dL (6.3-8.2)
[2018-04-04 07:43] LABS: POTASSIUM 3.1 mmol/L (3.6-5.0)
[2018-04-04] MEDS ORDERED: CEFTRIAXONE 1 GM/D5W RTU 1 GM/50 ML RTUPB IV SCH (10:00)
[2018-04-04] MEDS: POLYETHYLENE GLYCOL 3350 POWDER 17 GM/1 PACKET PO SCH (11:43)
[2018-04-04] MEDS: LOSARTAN POTASSIUM 25 MG TABLET PO SCH ×2 (11:44→22:33)
[2018-04-04] MEDS: PANTOPRAZOLE SODIUM 40 MG VIAL IV SCH (11:49)
[2018-04-04] MEDS ORDERED: POTASSIUM CHLORIDE 10 MEQ CAPSULE.ER PO ONE (15:00)
[2018-04-04] MEDS ORDERED: NORMAL SALINE 1000 ML 1,000 ML IV PRN (15:04)
[2018-04-04] MEDS ORDERED: CEFTRIAXONE SODIUM 1,000 MG in DEXTROSE 5%-WATER 50 ML IV SCH (18:00)
--- NOTE | 2018-04-04 21:06 | PDOC PROGRESS REPORT ---
Subjective Progress Note for:: 04/04/18 Subjective:: 87 y.o. F resident of [facility] admitted for UTI and weakness. PMH includes HTN. The patient was seen this morning on rounds. She is resting comfortably in bed on room air. Family at the bedside. The patient endorses lower abdominal pain. She is oriented to person and place. Upon assessment, the patient winces in pain upon palpation of the lower abdomen. Her bowel sounds are normal. S1S2. Lungs are clear to auscultation. The family states the patient has also been complaining of throat pain. She has been experiencing so much mouth/throat pain that she cannot eat or drink. Upon opening her mouth, the patient has a think yellowish plaque covering her tongue. The posterior pharynx is pink and moist, there is no evidence of erythema or ulceration. Requested the nursing staff to carry out qshift mouth care. Reason For Visit: UTI Physical Exam Vital Signs: Temp Pulse Resp BP Pulse Ox 98.2 F 77 13 149/62 H 100 04/04/18 16:42 04/04/18 16:42 04/04/18 16:42 04/04/18 16:42 04/04/18 16:42 Intake & Output 04/03/18 04/04/18 04/05/18 06:59 06:59 06:59 Intake Total 3000 150 Output Total 500 300 Balance 2500 -150 Weight 41.5 kg General appearance: PRESENT: no acute distress, thin Eye exam: PRESENT: conjunctiva pink, PERRLA Mouth exam: PRESENT: moist, tongue midline, other - YELLOW/GREEN PLAQUE TO TONGUE Teeth exam: PRESENT: poor dentation Neck exam: PRESENT: full ROM Respiratory exam: PRESENT: clear to auscultation bettie, symmetrical, unlabored Cardiovascular exam: PRESENT: +S1, +S2 Pulses: PRESENT: normal radial pulses, normal dorsalis pedis pul GI/Abdominal exam: PRESENT: normal bowel sounds, soft, tenderness - midline lower abdomen Rectal exam: PRESENT: deferred Gentrourinary exam: PRESENT: indwelling catheter Extremities exam: PRESENT: full ROM. ABSENT: joint swelling Musculoskeletal exam: PRESENT: full ROM, normal inspection Neurological exam: PRESENT: alert, awake, oriented to person, oriented to place Skin exam: PRESENT: dry, intact, normal color Results Laboratory Results: 04/04/18 06:52 04/04/18 06:52 04/04/18 04/04/18 04/04/18 06:52 06:52 06:58 WBC 9.7 RBC 3.77 Hgb 10.8 L Hct 32.2 L MCV 86 MCH 28.7 MCHC 33.6 RDW 14.6 H Plt Count 307 Seg Neutrophils % 89.2 H Lymphocytes % 6.1 L Monocytes % 3.9 Eosinophils % 0.6 Basophils % 0.2 Absolute Neutrophils 8.7 H Absolute Lymphocytes 0.6 Absolute Monocytes 0.4 Absolute Eosinophils 0.1 Absolute Basophils 0.0 Sodium 143.2 Potassium 3.1 L Chloride 110 H Carbon Dioxide 20 L Anion Gap 13 BUN 18 Creatinine 0.47 L Est GFR ( Amer) > 60 Est GFR (Non-Af Amer) > 60 Glucose 81 Lactic Acid 1.3 Calcium 8.3 L Phosphorus 2.3 L Magnesium 2.0 Total Bilirubin 1.0 AST 21 ALT 30 Alkaline Phosphatase 68 Total Protein 5.6 L Albumin 2.6 L Impressions: Chest X-Ray 04/03/18 15:27 IMPRESSION: COPD. NO ACUTE RADIOGRAPHIC FINDING IN THE CHEST. Status: Imported from PACS Assessment & Plan - Diagnosis (1) UTI (urinary tract infection) Qualifiers: Urinary tract infection type: site unspecified Is this a current diagnosis for this admission?: Yes Plan: Patient presented with weakness and altered mental status UA not strongly suggestive of UTI - no nitrates or leuk. esterase or WBC Urine culture (+) GNR - awaiting final culture and sensitivities Continue IV Rocephin (2) Encephalopathy Is this a current diagnosis for this admission?: Yes Plan: Likely secondary to UTI Patient's mental status improving according to family Continue IV antibiotics (3) COPD (chronic obstructive pulmonary disease) Is this a current diagnosis for this admission?: Yes Plan: As seen on XRAY Patient able to maintain SPO2>88% without supplemental oxygen (4) DNR (do not resuscitate) Is this a current diagnosis for this admission?: Yes - Time Time Spent with patient: 15-24 minutes Medications reviewed and adjusted accordingly: Yes Anticipated discharge: SNF Within: within 48 hours - Inpatient Certification Based on my medical assessment, after consideration of the patient's comorbidities, presenting symptoms, or acuity I expect that the services needed warrant INPATIENT care.: Yes I certify that my determination is in accordance with my understanding of Medicare's requirements for reasonable and necessary INPATIENT services [42 CFR 412.3e].: Yes Medical Necessity: Need for IV Antibiotics - Plan Summary Plan Summary: CONTINUE IV ANTIBIOTICS. AWAITING CULTURES AND SENSITIVITIES. PLAN TO SEND BACK TO [facility] ON PO ANTIBIOTICS
[2018-04-04] MEDS ORDERED: MIRTAZAPINE 15 MG TABLET PO SCH (22:00)
[2018-04-04] MEDS: POTASSI CL 20 MEQ/NS 1L 1000 ML IV PRN (22:34)
[2018-04-05] MEDS: HEPARIN SOD (PORCINE) 5,000 UNIT/ML 1 ML SYRINGE SUBCUT SCH ×2 (05:24→16:38)
[2018-04-05 06:10] LABS: HEMATOCRIT 30.6 % (36.0-47.0); HEMOGLOBIN 10.4 g/dL (12.0-15.5); MEAN CORPUSCULAR HEMOGLOBIN 28.7 pg (27.0-33.4); MEAN CORPUSCULAR HGB CONC 34.1 g/dL (32.0-36.0); MEAN CORPUSCULAR VOLUME 84 fl (80-97); PLATELET COUNT 293 10^3/uL (150-450); RED BLOOD COUNT 3.64 10^6/uL (3.72-5.28); RED CELL DISTRIBUTION WIDTH 14.7 % (11.5-14.0); WHITE BLOOD COUNT 7.3 10^3/uL (4.0-10.5)
[2018-04-05 06:26] LABS: ALANINE AMINOTRANSFERASE 34 U/L (9-52); ALBUMIN 2.7 g/dL (3.5-5.0); ALKALINE PHOSPHATASE 70 U/L (38-126); ANION GAP 12 (5-19); ASPARTATE AMINO TRANSFERASE 34 U/L (14-36); BILIRUBIN,DIRECT 0.6 mg/dL (0.0-0.4); BILIRUBIN,TOTAL 0.9 mg/dL (0.2-1.3); BLOOD UREA NITROGEN 14 mg/dL (7-20); CALCIUM 7.9 mg/dL (8.4-10.2); CARBON DIOXIDE 23 mmol/L (22-30); CHLORIDE 107 mmol/L (98-107); GLUCOSE 77 mg/dL (75-110); SODIUM 141.5 mmol/L (137-145); TOTAL PROTEIN 5.9 g/dL (6.3-8.2)
[2018-04-05 06:39] LABS: POTASSIUM 2.7 mmol/L (3.6-5.0)
[2018-04-05] MEDS: LOSARTAN POTASSIUM 25 MG TABLET PO SCH (11:37)
[2018-04-05] MEDS: PANTOPRAZOLE SODIUM 40 MG VIAL IV SCH (11:37)
[2018-04-05] MEDS: POLYETHYLENE GLYCOL 3350 POWDER 17 GM/1 PACKET PO SCH (11:38)
[2018-04-05] MEDS ORDERED: CIPROFLOXACIN 400 MG/D5W RTU 400 MG/200 ML RTUPB IV SCH ×2 (12:00→14:00)
[2018-04-05] MEDS ORDERED: BENZOCAINE 20% AEROSOL SPRAY 60 GM TP ONE (13:30)
[2018-04-05] MEDS: POTASSI CL 20 MEQ/50 ML RIDER 20 MEQ/50 ML RTUPB IV SCH ×3 (14:02→20:08)
[2018-04-05] MEDS ORDERED: PHARMACY COMMUNICATION ORDER MC NR (15:15)
[2018-04-05] MEDS ORDERED: MAG HYDROX/AL HYDROX/SIMETH SUSP 30 ML UDCUP NG PRN (15:19)
[2018-04-05] MEDS ORDERED: ACETAMINOPHEN 325 MG TABLET NG PRN (15:19)
[2018-04-05] MEDS: NYSTATIN 500000 UNIT/5 ML UDCUP PO SCH ×2 (17:14→18:26)
--- NOTE | 2018-04-05 17:57 | PDOC PROGRESS REPORT ---
Subjective Progress Note for:: 04/05/18 Subjective:: 87 y.o. F resident of [facility] admitted for UTI and weakness. PMH includes HTN. The patient was seen this morning on rounds. She is resting comfortably in bed on room air. Family at the bedside. She is oriented to person, minimally interactive today. Friend at the bedside is concerned that the patient is refusing to eat. The friend states the patient has been complaining of throat pain. She has been experiencing so much mouth/throat pain that she cannot eat or drink. Upon assessment, lungs are clear to auscultation, S1S2, abdomen is soft and nontender. Nursing staff has been performing every shift mouth care, white plaque remains covering the entirety of the tongue, consistent with thrush. The posterior pharynx is pink and moist, there is no evidence of erythema or ulceration. Patient's medical POA spoke with medical staff today. They wish to pursue a nasogastric tube in order to provide nourishment to the patient. The POA states that the patient would want all available medical treatment (with the exception of CPR and intubation). Plan to initiate nasogastric feeding tube. Reason For Visit: UTI Physical Exam Vital Signs: Temp Pulse Resp BP Pulse Ox 98.4 F 81 13 159/73 H 98 04/05/18 15:14 04/05/18 15:14 04/05/18 15:14 04/05/18 15:14 04/05/18 15:14 Intake & Output 04/04/18 04/05/18 04/06/18 06:59 06:59 06:59 Intake Total 3000 1250 50 Output Total 500 700 Balance 2500 550 50 Weight 41.5 kg 41.3 kg General appearance: PRESENT: thin Head exam: PRESENT: atraumatic Eye exam: PRESENT: conjunctiva pink, PERRLA Mouth exam: PRESENT: moist Teeth exam: PRESENT: poor dentation Neck exam: PRESENT: full ROM Respiratory exam: PRESENT: clear to auscultation bettie, symmetrical, unlabored Cardiovascular exam: PRESENT: +S1, +S2. ABSENT: systolic murmur Pulses: PRESENT: normal radial pulses, normal dorsalis pedis pul Vascular exam: PRESENT: normal capillary refill GI/Abdominal exam: PRESENT: normal bowel sounds, soft. ABSENT: tenderness Rectal exam: PRESENT: deferred Extremities exam: ABSENT: full ROM Musculoskeletal exam: ABSENT: ambulatory, full ROM Neurological exam: PRESENT: awake, oriented to person, oriented to place. ABSENT: alert, oriented to time, oriented to situation, normal gait Psychiatric exam: PRESENT: appropriate affect Skin exam: PRESENT: dry, intact, warm Results Laboratory Results: 04/05/18 05:59 04/05/18 05:59 04/05/18 04/05/18 05:59 05:59 WBC 7.3 RBC 3.64 L Hgb 10.4 L Hct 30.6 L MCV 84 MCH 28.7 MCHC 34.1 RDW 14.7 H Plt Count 293 Sodium 141.5 Potassium 2.7 L* Chloride 107 Carbon Dioxide 23 Anion Gap 12 BUN 14 Creatinine 0.44 L Est GFR ( Amer) > 60 Est GFR (Non-Af Amer) > 60 Glucose 77 Calcium 7.9 L Total Bilirubin 0.9 AST 34 ALT 34 Alkaline Phosphatase 70 Total Protein 5.9 L Albumin 2.7 L Impressions: Chest X-Ray 04/03/18 15:27 IMPRESSION: COPD. NO ACUTE RADIOGRAPHIC FINDING IN THE CHEST. Status: Imported from PACS Assessment & Plan - Diagnosis (1) UTI (urinary tract infection) Qualifiers: Urinary tract infection type: site unspecified Is this a current diagnosis for this admission?: Yes Plan: Patient presented with weakness and altered mental status Urine culture (+) ESBL E.coli SARA for Rocephin is 8, switch to Cipro with better SARA of 1 Afberile and no leukocytosis (2) Encephalopathy Is this a current diagnosis for this admission?: Yes Plan: Likely secondary to UTI Patient's mental status improving according to family Continue IV antibiotics (3) COPD (chronic obstructive pulmonary disease) Is this a current diagnosis for this admission?: Yes Plan: As seen on XRAY Patient able to maintain SPO2>88% without supplemental oxygen (4) DNR (do not resuscitate) Is this a current diagnosis for this admission?: Yes Plan: Medical POA reinforced that the patient does not want CPR or intubation (5) Nutrition deficiency due to insufficient food Is this a current diagnosis for this admission?: Yes Plan: Patient is not eating, citing throat and mouth pain Attempted nystatin and topical lidocaine, but patient still not eating After discussion with medical POA, the decision was made to place a nasogastric tube Will initiate enteral feeding tonight Consult registered dietitian for tube feeding recommendations - Time Time Spent with patient: 15-24 minutes Medications reviewed and adjusted accordingly: Yes Anticipated discharge: SNF - Inpatient Certification Based on my medical assessment, after consideration of the patient's comorbidities, presenting symptoms, or acuity I expect that the services needed warrant INPATIENT care.: Yes I certify that my determination is in accordance with my understanding of Medicare's requirements for reasonable and necessary INPATIENT services [42 CFR 412.3e].: Yes Medical Necessity: Need for IV Antibiotics, Risk of Complication if Not Cared For in Hospital - Plan Summary Plan Summary: INSERT NG TUBE. START TUBE FEEDING. CHANGE ANTIBIOTICS BASED ON CULTURES AND SENSITIVITIES.
--- NOTE | 2018-04-05 21:34 | RADIOLOGY REPORT (SQ) ---
EXAM DESCRIPTION: KUB/ABDOMEN (SINGLE VIEW) COMPLETED DATE/TIME: 04/05/2018 9:25 pm REASON FOR STUDY: Check Placement of NG Tube COMPARISON: None. NUMBER OF VIEWS: One view. TECHNIQUE: Supine radiographic image of the abdomen acquired. LIMITATIONS: None. FINDINGS: BOWEL GAS PATTERN: Nonobstructed bowel gas pattern. CALCIFICATIONS: No suspicious calcifications. SOFT TISSUES: No gross mass or suggestion of organomegaly. HARDWARE: There is an enteric tube in place with the tip and side port projecting over the distal and mid stomach. There is a presumed catheter within the bladder. BONES: Diffuse degenerative changes throughout. No acute bony abnormalities. OTHER: No other significant finding. IMPRESSION: Tubes as described. TECHNICAL DOCUMENTATION: JOB ID: [id number] [employer]- All Rights Reserved Reading location - IP/workstation name: [email or web address]
[2018-04-06] MEDS: CIPROFLOXACIN 400 MG/D5W RTU 400 MG/200 ML RTUPB IV SCH ×2 (04:30→22:48)
[2018-04-06] MEDS: LOSARTAN POTASSIUM 25 MG TABLET NG SCH ×3 (04:31→22:53)
[2018-04-06] MEDS: MIRTAZAPINE 15 MG TABLET NG SCH ×2 (04:31→22:54)
[2018-04-06] MEDS: HEPARIN SOD (PORCINE) 5,000 UNIT/ML 1 ML SYRINGE SUBCUT SCH ×4 (04:31→22:55)
[2018-04-06] MEDS: NYSTATIN 500000 UNIT/5 ML UDCUP PO SCH ×4 (04:32→22:56)
[2018-04-06] MEDS: POTASSI CL 20 MEQ/NS 1L 1000 ML IV PRN (06:50)
[2018-04-06 08:28] LABS: HEMATOCRIT 33.4 % (36.0-47.0); HEMOGLOBIN 11.3 g/dL (12.0-15.5); MEAN CORPUSCULAR HEMOGLOBIN 28.6 pg (27.0-33.4); MEAN CORPUSCULAR HGB CONC 33.9 g/dL (32.0-36.0); MEAN CORPUSCULAR VOLUME 84 fl (80-97); PLATELET COUNT 310 10^3/uL (150-450); RED BLOOD COUNT 3.96 10^6/uL (3.72-5.28); RED CELL DISTRIBUTION WIDTH 14.9 % (11.5-14.0); WHITE BLOOD COUNT 6.2 10^3/uL (4.0-10.5)
[2018-04-06 08:53] LABS: ALANINE AMINOTRANSFERASE 38 U/L (9-52); ALBUMIN 2.6 g/dL (3.5-5.0); ALKALINE PHOSPHATASE 80 U/L (38-126); ANION GAP 13 (5-19); ASPARTATE AMINO TRANSFERASE 33 U/L (14-36); BILIRUBIN,DIRECT 0.6 mg/dL (0.0-0.4); BILIRUBIN,TOTAL 1.1 mg/dL (0.2-1.3); BLOOD UREA NITROGEN 12 mg/dL (7-20); CALCIUM 8.2 mg/dL (8.4-10.2); CARBON DIOXIDE 22 mmol/L (22-30); CHLORIDE 104 mmol/L (98-107); GLUCOSE 92 mg/dL (75-110); POTASSIUM 3.7 mmol/L (3.6-5.0); SODIUM 138.7 mmol/L (137-145); TOTAL PROTEIN 5.8 g/dL (6.3-8.2)
[2018-04-06] MEDS: POLYETHYLENE GLYCOL 3350 POWDER 17 GM/1 PACKET NG SCH (11:00)
[2018-04-06] MEDS: PANTOPRAZOLE SODIUM 40 MG VIAL IV SCH (12:04)
[2018-04-06 12:45] LABS: PHOSPHORUS 2.3 mg/dL (2.5-4.5)
--- NOTE | 2018-04-06 18:42 | PDOC PROGRESS REPORT ---
Subjective Progress Note for:: 04/06/18 Subjective:: 87 y.o. F resident of [facility] admitted for UTI and weakness. PMH includes HTN. The patient was seen this morning on rounds. She is resting comfortably in bed on room air. She is oriented to person and place, disoriented to time and situation. The patient is asking for the NG tube to be removed. She continuously apologizes for refusing to eat over the last few days. She states that her throat and mouth are no longer hurting, and she will attempt p.o. intake. Upon assessment, lungs are clear to auscultation, S1S2, abdomen is soft and nontender. [facility] states that they do not have Medical POA paperwork for this patient, despite telling medical staff yesterday that the patient's friend, Jemma Gonzalez, is her medical decision maker. Additionally, administrative staff at [facility] reported that the patient was being investigated by APS. There is currently no legal guardian or decision maker for the patient as she is not , has no children or living siblings. right of way worker, Walter Treviño , has been made aware of the patient's situation. Reached out to patient's APS worker, Ching Haywood, currently awaiting call back. No further medical treatment can be dictated by patient's friend, Jemma Gonzalez. Reason For Visit: UTI Physical Exam Vital Signs: Temp Pulse Resp BP Pulse Ox 98.2 F 95 14 151/79 H 95 04/06/18 16:00 04/06/18 16:00 04/06/18 16:00 04/06/18 16:00 04/06/18 16:00 Intake & Output 04/05/18 04/06/18 04/07/18 06:59 06:59 06:59 Intake Total 1250 1250 0 Output Total 700 800 350 Balance 550 450 -350 Weight 41.3 kg General appearance: PRESENT: no acute distress, thin Eye exam: PRESENT: conjunctiva pink, PERRLA Mouth exam: PRESENT: moist, tongue midline Teeth exam: PRESENT: poor dentation Neck exam: PRESENT: full ROM Respiratory exam: PRESENT: clear to auscultation bettie, symmetrical, unlabored Cardiovascular exam: PRESENT: +S1, +S2 Pulses: PRESENT: normal radial pulses, normal dorsalis pedis pul GI/Abdominal exam: PRESENT: normal bowel sounds, soft. ABSENT: tenderness Rectal exam: PRESENT: deferred Extremities exam: PRESENT: full ROM Musculoskeletal exam: PRESENT: full ROM. ABSENT: ambulatory - BED BOUND Neurological exam: PRESENT: alert, awake, oriented to person, oriented to place. ABSENT: oriented to time, oriented to situation Skin exam: PRESENT: dry, intact, normal color, warm Results Laboratory Results: 04/06/18 07:40 04/06/18 07:40 04/06/18 04/06/18 04/06/18 07:40 07:40 07:40 WBC 6.2 RBC 3.96 Hgb 11.3 L Hct 33.4 L MCV 84 MCH 28.6 MCHC 33.9 RDW 14.9 H Plt Count 310 Sodium 138.7 Potassium 3.7 Chloride 104 Carbon Dioxide 22 Anion Gap 13 BUN 12 Creatinine 0.43 L Est GFR ( Amer) > 60 Est GFR (Non-Af Amer) > 60 Glucose 92 Calcium 8.2 L Phosphorus 2.3 L Magnesium 1.9 Total Bilirubin 1.1 AST 33 ALT 38 Alkaline Phosphatase 80 Total Protein 5.8 L Albumin 2.6 L Impressions: Chest X-Ray 04/03/18 15:27 IMPRESSION: COPD. NO ACUTE RADIOGRAPHIC FINDING IN THE CHEST. KUB X-Ray 04/05/18 15:07 IMPRESSION: Tubes as described. Status: Imported from PACS Assessment & Plan - Diagnosis (1) UTI (urinary tract infection) Qualifiers: Urinary tract infection type: site unspecified Is this a current diagnosis for this admission?: Yes Plan: Patient presented with weakness and altered mental status Urine culture (+) ESBL E.coli and Pseudomonas SARA for Rocephin is 8, switch to Cipro with better SARA of 1 Afberile and no leukocytosis (2) Encephalopathy Is this a current diagnosis for this admission?: Yes Plan: Likely secondary to UTI and generalized weakness Patient's mental status improving today, she is able to tell me her name, birthday, and location. She remains disoriented to time and duration. Previously, she would only answer yes/no questions Continue IV antibiotics (3) COPD (chronic obstructive pulmonary disease) Is this a current diagnosis for this admission?: Yes Plan: As seen on XRAY Patient able to maintain SPO2>88% without supplemental oxygen (4) DNR (do not resuscitate) Is this a current diagnosis for this admission?: Yes (5) Nutrition deficiency due to insufficient food Is this a current diagnosis for this admission?: Yes Plan: NG tube placed yesterday and enteral feeding initiated Patient initially was refusing to eat citing throat and mouth pain. Today she is making for the NG tube to be removed. States she is no longer experiencing throat or mouth pain. Consult registered dietitian for tube feeding recommendations -continue with Jevity 1.5 at 30 mL/hr with water flushes 547 in 24hr - Time Time Spent with patient: 15-24 minutes Medications reviewed and adjusted accordingly: Yes Anticipated discharge: Home - Inpatient Certification Based on my medical assessment, after consideration of the patient's comorbidities, presenting symptoms, or acuity I expect that the services needed warrant INPATIENT care.: Yes I certify that my determination is in accordance with my understanding of Medicare's requirements for reasonable and necessary INPATIENT services [42 CFR 412.3e].: Yes Medical Necessity: Risk of Complication if Not Cared For in Hospital
[2018-04-07] MEDS: POTASSI CL 20 MEQ/NS 1L 1000 ML IV PRN (03:41)
[2018-04-07] MEDS: NYSTATIN 500000 UNIT/5 ML UDCUP PO SCH ×4 (03:42→18:08)
[2018-04-07] MEDS: HEPARIN SOD (PORCINE) 5,000 UNIT/ML 1 ML SYRINGE SUBCUT SCH ×3 (05:58→21:34)
[2018-04-07 08:19] LABS: HEMATOCRIT 32.5 % (36.0-47.0); HEMOGLOBIN 11.1 g/dL (12.0-15.5); MEAN CORPUSCULAR HEMOGLOBIN 28.6 pg (27.0-33.4); MEAN CORPUSCULAR HGB CONC 34.1 g/dL (32.0-36.0); MEAN CORPUSCULAR VOLUME 84 fl (80-97); PLATELET COUNT 260 10^3/uL (150-450); RED BLOOD COUNT 3.88 10^6/uL (3.72-5.28); RED CELL DISTRIBUTION WIDTH 14.8 % (11.5-14.0); WHITE BLOOD COUNT 5.8 10^3/uL (4.0-10.5)
[2018-04-07 08:35] LABS: ALANINE AMINOTRANSFERASE 37 U/L (9-52); ALBUMIN 2.5 g/dL (3.5-5.0); ALKALINE PHOSPHATASE 75 U/L (38-126); ANION GAP 9 (5-19); ASPARTATE AMINO TRANSFERASE 27 U/L (14-36); BILIRUBIN,DIRECT 0.6 mg/dL (0.0-0.4); BILIRUBIN,TOTAL 1.1 mg/dL (0.2-1.3); BLOOD UREA NITROGEN 12 mg/dL (7-20); CALCIUM 7.9 mg/dL (8.4-10.2); CARBON DIOXIDE 24 mmol/L (22-30); CHLORIDE 103 mmol/L (98-107); GLUCOSE 117 mg/dL (75-110); POTASSIUM 3.6 mmol/L (3.6-5.0); SODIUM 136.3 mmol/L (137-145); TOTAL PROTEIN 5.4 g/dL (6.3-8.2)
[2018-04-07] MEDS: LOSARTAN POTASSIUM 25 MG TABLET NG SCH ×2 (11:28→21:34)
[2018-04-07] MEDS: POLYETHYLENE GLYCOL 3350 POWDER 17 GM/1 PACKET NG SCH (11:29)
--- NOTE | 2018-04-07 16:48 | PDOC PROGRESS REPORT ---
Subjective Progress Note for:: 04/07/18 Subjective:: 87 y.o. F resident of [facility] admitted for UTI and weakness. PMH includes HTN. The patient was seen this morning on rounds. She is resting comfortably in bed on room air. She is oriented to person and place, disoriented to time and situation. The patient is asking for the NG tube to be removed. Upon assessment , lungs are clear to auscultation but there is a great deal of upper airway secretions , S1S2, abdomen is soft and nontender. Met with patient's friends today, including Jemma Gonzalez. We all agreed that the patient is suffering, and the best course of action is to place her under palliative care. Plan to remove NG tube and Trujillo today. No longer ordering AM lab work. Palliative care consult requested via [facility]. Reason For Visit: UTI Physical Exam Vital Signs: Temp Pulse Resp BP Pulse Ox 98.4 F 105 H 15 136/72 H 95 04/07/18 08:02 04/07/18 08:02 04/07/18 08:02 04/07/18 08:02 04/06/18 16:00 Intake & Output 04/06/18 04/07/18 04/08/18 06:59 06:59 06:59 Intake Total 1250 1000 Output Total 800 825 Balance 450 175 Weight 43.5 kg General appearance: PRESENT: no acute distress, thin Head exam: PRESENT: atraumatic Eye exam: PRESENT: conjunctiva pink, PERRLA Mouth exam: PRESENT: moist Teeth exam: PRESENT: poor dentation Neck exam: PRESENT: full ROM Respiratory exam: PRESENT: clear to auscultation bettie, symmetrical, unlabored, other - Upper airway secretions Cardiovascular exam: PRESENT: +S1, +S2 Pulses: PRESENT: normal radial pulses, normal dorsalis pedis pul Vascular exam: PRESENT: normal capillary refill GI/Abdominal exam: PRESENT: normal bowel sounds, soft. ABSENT: tenderness Rectal exam: PRESENT: deferred Gentrourinary exam: PRESENT: indwelling catheter Extremities exam: PRESENT: full ROM. ABSENT: joint swelling, pedal edema Musculoskeletal exam: PRESENT: full ROM. ABSENT: ambulatory - bed bound Neurological exam: PRESENT: alert, awake, oriented to person, oriented to place. ABSENT: oriented to time, oriented to situation Skin exam: PRESENT: dry, intact, normal color, warm Results Laboratory Results: 04/07/18 07:39 04/07/18 07:39 04/07/18 04/07/18 07:39 07:39 WBC 5.8 RBC 3.88 Hgb 11.1 L Hct 32.5 L MCV 84 MCH 28.6 MCHC 34.1 RDW 14.8 H Plt Count 260 Sodium 136.3 L Potassium 3.6 Chloride 103 Carbon Dioxide 24 Anion Gap 9 BUN 12 Creatinine 0.35 L Est GFR ( Amer) > 60 Est GFR (Non-Af Amer) > 60 Glucose 117 H Calcium 7.9 L Magnesium 1.8 Total Bilirubin 1.1 AST 27 ALT 37 Alkaline Phosphatase 75 Total Protein 5.4 L Albumin 2.5 L Impressions: Chest X-Ray 04/03/18 15:27 IMPRESSION: COPD. NO ACUTE RADIOGRAPHIC FINDING IN THE CHEST. KUB X-Ray 04/05/18 15:07 IMPRESSION: Tubes as described. Status: Imported from PACS Assessment & Plan - Diagnosis (1) Quality of life palliative care encounter Is this a current diagnosis for this admission?: Yes Plan: Met with patient's friends today, including her emergency contact Jemma Aguayo We all agree that the patient appears to be suffering, she is begging for her NG tube to be removed We all agreed that the best course of action is to place the patient under palliative care Requested palliative care consult today via [facility] hospice Remove NG tube Remove Trujillo catheter No a.m. lab draws Comfort feeding (2) UTI (urinary tract infection) Qualifiers: Urinary tract infection type: site unspecified Is this a current diagnosis for this admission?: Yes Plan: Patient presented with weakness and altered mental status Urine culture (+) ESBL E.coli and Pseudomonas SARA for Rocephin is 8, switch to Cipro with better SARA of 1 Afberile and no leukocytosis (3) Encephalopathy Is this a current diagnosis for this admission?: Yes Plan: Likely secondary to UTI and generalized weakness Patient's mental status improving today, she is able to tell me her name, birthday, and location. She remains disoriented to time and duration. Previously, she would only answer yes/no questions Continue IV antibiotics (4) COPD (chronic obstructive pulmonary disease) Is this a current diagnosis for this admission?: Yes Plan: As seen on XRAY Patient able to maintain SPO2>88% without supplemental oxygen (5) DNR (do not resuscitate) Is this a current diagnosis for this admission?: Yes Plan: Patient comes from [facility] with DNR paperwork (6) Nutrition deficiency due to insufficient food Is this a current diagnosis for this admission?: Yes Plan: NG tube placed 04/05 and enteral feeding initiated Patient initially was refusing to eat citing throat and mouth pain. Today she is begging for the NG tube to be removed. States she is no longer experiencing throat or mouth pain. Plan to remove NG tube today and place patient on palliative care. - Time Time Spent with patient: 15-24 minutes Medications reviewed and adjusted accordingly: Yes Anticipated discharge: SNF - Inpatient Certification Based on my medical assessment, after consideration of the patient's comorbidities, presenting symptoms, or acuity I expect that the services needed warrant INPATIENT care.: Yes I certify that my determination is in accordance with my understanding of Medicare's requirements for reasonable and necessary INPATIENT services [42 CFR 412.3e].: Yes Medical Necessity: Risk of Complication if Not Cared For in Hospital - Plan Summary Plan Summary: Pursuing palliative care consult.
[2018-04-07] MEDS: DEXTROSE 5%-1/2 NORMAL SALINE 1,000 ML IV PRN (17:40)
[2018-04-07] MEDS: CIPROFLOXACIN 400 MG/D5W RTU 400 MG/200 ML RTUPB IV SCH (21:34)
[2018-04-07] MEDS: MIRTAZAPINE 15 MG TABLET NG SCH (21:35)
[2018-04-08] MEDS: NYSTATIN 500000 UNIT/5 ML UDCUP PO SCH ×5 (00:52→23:11)
[2018-04-08] MEDS: HEPARIN SOD (PORCINE) 5,000 UNIT/ML 1 ML SYRINGE SUBCUT SCH ×3 (05:17→20:59)
[2018-04-08] MEDS: POLYETHYLENE GLYCOL 3350 POWDER 17 GM/1 PACKET NG SCH (09:23)
[2018-04-08] MEDS: LOSARTAN POTASSIUM 25 MG TABLET NG SCH ×2 (09:23→20:59)
[2018-04-08] MEDS: DEXTROSE 5%-1/2 NORMAL SALINE 1,000 ML IV PRN (12:05)
--- NOTE | 2018-04-08 17:46 | PDOC PROGRESS REPORT ---
Subjective Progress Note for:: 04/08/18 Subjective:: 87 y.o. F resident of [facility] admitted for UTI and weakness. PMH includes HTN. The patient was seen this morning on rounds. She is resting comfortably in bed on room air. She is minimally interactive, willing to answer basic yes/no questions, does not speak in full sentences. Upon assessment, lungs are clear to auscultation , S1S2, abdomen is soft and nontender. Palliative care consult requested via [facility]. Discussed with discharge planning. Software Project Lead from [facility] is not able to assess /make recommendations until Tuesday. Patient will remain at [facility] until that time. She will be ready for transfer back to [facility] on Tuesday. Reason For Visit: UTI Physical Exam Vital Signs: Temp Pulse Resp BP Pulse Ox 99.8 F 95 18 151/82 H 98 04/08/18 16:00 04/08/18 16:00 04/08/18 16:00 04/08/18 16:00 04/08/18 16:00 Intake & Output 04/07/18 04/08/18 04/09/18 06:59 06:59 06:59 Intake Total 1200 717 742 Output Total 825 300 Balance 375 417 742 Weight 43.5 kg 42.6 kg 45.6 kg General appearance: PRESENT: thin Head exam: PRESENT: atraumatic Eye exam: PRESENT: conjunctiva pink, PERRLA Mouth exam: PRESENT: moist Teeth exam: PRESENT: poor dentation Neck exam: PRESENT: full ROM Respiratory exam: PRESENT: clear to auscultation bettie, symmetrical, unlabored Cardiovascular exam: PRESENT: +S1, +S2 Pulses: PRESENT: normal radial pulses, normal dorsalis pedis pul Vascular exam: PRESENT: normal capillary refill GI/Abdominal exam: PRESENT: normal bowel sounds, soft. ABSENT: tenderness Rectal exam: PRESENT: deferred Extremities exam: ABSENT: full ROM, joint swelling, pedal edema Musculoskeletal exam: ABSENT: ambulatory - bed bound, full ROM Neurological exam: PRESENT: alert, awake, oriented to person. ABSENT: oriented to place, oriented to time, oriented to situation Skin exam: PRESENT: dry, intact, normal color, warm Results Laboratory Results: 04/07/18 07:39 04/07/18 07:39 Impressions: Chest X-Ray 04/03/18 15:27 IMPRESSION: COPD. NO ACUTE RADIOGRAPHIC FINDING IN THE CHEST. KUB X-Ray 04/05/18 15:07 IMPRESSION: Tubes as described. Status: Imported from PACS Assessment & Plan - Diagnosis (1) Quality of life palliative care encounter Is this a current diagnosis for this admission?: Yes Plan: Requested palliative care consult today via [facility] Patient's friends/emergency contact are all in agreement about this plan Of note, the patient has no living family (spouse/children/siblings). Remove NG tube Remove Trujillo catheter No a.m. lab draws Comfort feeding (2) UTI (urinary tract infection) Qualifiers: Urinary tract infection type: site unspecified Is this a current diagnosis for this admission?: Yes Plan: Patient presented with weakness and altered mental status Urine culture (+) ESBL E.coli and Pseudomonas SARA for Rocephin is 8, switch to Cipro with better SARA of 1 Afberile and no leukocytosis (3) Encephalopathy Is this a current diagnosis for this admission?: Yes Plan: Likely secondary to UTI and generalized weakness Patient's mental status improving today, she is able to tell me her name, birthday, and location. She remains disoriented to time and duration. Previously, she would only answer yes/no questions Continue IV antibiotics (4) COPD (chronic obstructive pulmonary disease) Is this a current diagnosis for this admission?: Yes Plan: As seen on XRAY Patient able to maintain SPO2>88% without supplemental oxygen (5) DNR (do not resuscitate) Is this a current diagnosis for this admission?: Yes Plan: Patient comes from [facility] with DNR paperwork (6) Nutrition deficiency due to insufficient food Is this a current diagnosis for this admission?: Yes Plan: NG tube placed 04/05 and enteral feeding initiated Patient initially was refusing to eat citing throat and mouth pain. NG tube yesterday and patient placed on palliative care. - Time Time Spent with patient: 15-24 minutes Medications reviewed and adjusted accordingly: Yes Anticipated discharge: SNF Within: within 48 hours - Inpatient Certification Based on my medical assessment, after consideration of the patient's comorbidities, presenting symptoms, or acuity I expect that the services needed warrant INPATIENT care.: Yes I certify that my determination is in accordance with my understanding of Medicare's requirements for reasonable and necessary INPATIENT services [42 CFR 412.3e].: Yes Medical Necessity: Risk of Complication if Not Cared For in Hospital - Plan Summary Plan Summary: CONTINUE PALLIATIVE CARE MEASURES. NO NEW MEDICAL INTERVENTIONS AT THIS TIME. AWAITING ASSESSMENT BY [facility]/PALLIATIVE CARE
[2018-04-08] MEDS: CIPROFLOXACIN 400 MG/D5W RTU 400 MG/200 ML RTUPB IV SCH (20:58)
[2018-04-08] MEDS: MIRTAZAPINE 15 MG TABLET NG SCH (20:59)
[2018-04-09] MEDS: HEPARIN SOD (PORCINE) 5,000 UNIT/ML 1 ML SYRINGE SUBCUT SCH ×3 (05:25→22:15)
[2018-04-09] MEDS: NYSTATIN 500000 UNIT/5 ML UDCUP PO SCH ×3 (05:26→17:09)
[2018-04-09] MEDS: DEXTROSE 5%-1/2 NORMAL SALINE 1,000 ML IV PRN (06:34)
[2018-04-09] MEDS: LOSARTAN POTASSIUM 25 MG TABLET NG SCH ×2 (09:18→22:15)
[2018-04-09] MEDS: POLYETHYLENE GLYCOL 3350 POWDER 17 GM/1 PACKET NG SCH (09:19)
[2018-04-09] MEDS: MIRTAZAPINE 15 MG TABLET NG SCH (22:16)
--- NOTE | 2018-04-09 22:33 | PDOC PROGRESS REPORT ---
Subjective Progress Note for:: 04/09/18 Subjective:: 87 y.o. F resident of [facility] admitted for UTI and weakness. PMH includes HTN. The patient was seen this morning on rounds. She is resting comfortably in bed on room air. She is minimally interactive, willing to answer basic yes/no questions, does not speak in full sentences. Upon assessment, lungs are clear to auscultation , S1S2, abdomen is soft and nontender. Palliative care consult requested via [facility]. Discussed with discharge planning. Director [employer] from [facility] is not able to assess /make recommendations until Tuesday. Patient will remain at [facility] until that time. She will be ready for transfer back to [facility] on Tuesday. Reason For Visit: UTI Physical Exam Vital Signs: Temp Pulse Resp BP Pulse Ox 97.8 F 69 15 126/64 H 100 04/09/18 20:05 04/09/18 20:05 04/09/18 20:05 04/09/18 20:05 04/09/18 20:05 Intake & Output 04/08/18 04/09/18 04/10/18 06:59 06:59 06:59 Intake Total 917 1742 Output Total 300 Balance 617 1742 Weight 42.6 kg 44.2 kg General appearance: PRESENT: no acute distress, thin Eye exam: PRESENT: conjunctiva pink, PERRLA Mouth exam: PRESENT: moist, tongue midline Teeth exam: PRESENT: poor dentation Respiratory exam: PRESENT: clear to auscultation bettie, symmetrical, unlabored Cardiovascular exam: PRESENT: +S1, +S2 Pulses: PRESENT: normal radial pulses, normal dorsalis pedis pul Vascular exam: PRESENT: normal capillary refill GI/Abdominal exam: PRESENT: normal bowel sounds, soft, tenderness Rectal exam: PRESENT: deferred Extremities exam: PRESENT: joint swelling, pedal edema. ABSENT: full ROM Musculoskeletal exam: ABSENT: ambulatory, full ROM Neurological exam: PRESENT: awake, oriented to person. ABSENT: oriented to place, oriented to time, oriented to situation Psychiatric exam: PRESENT: appropriate affect Skin exam: PRESENT: dry, intact, normal color Results Laboratory Results: 04/07/18 07:39 04/07/18 07:39 Impressions: Chest X-Ray 04/03/18 15:27 IMPRESSION: COPD. NO ACUTE RADIOGRAPHIC FINDING IN THE CHEST. KUB X-Ray 04/05/18 15:07 IMPRESSION: Tubes as described. Status: Imported from PACS Assessment & Plan - Diagnosis (1) Quality of life palliative care encounter Is this a current diagnosis for this admission?: Yes Plan: Requested palliative care consult via [facility] Patient's friends/emergency contact are all in agreement about this plan Of note, the patient has no living family (spouse/children/siblings). D/C'D NG tube D/C'D Trujillo catheter D/C'D a.m. lab draws Comfort feeding (2) UTI (urinary tract infection) Qualifiers: Urinary tract infection type: site unspecified Is this a current diagnosis for this admission?: Yes Plan: Patient presented with weakness and altered mental status Urine culture (+) ESBL E.coli and Pseudomonas SARA for Rocephin is 8, switch to Cipro with better SARA of 1 Afberile and no leukocytosis (3) Encephalopathy Is this a current diagnosis for this admission?: Yes Plan: Likely secondary to UTI and generalized weakness Patient's mental status improving today, she is able to tell me her name, birthday, and location. She remains disoriented to time and duration. Previously, she would only answer yes/no questions Continue IV antibiotics (4) COPD (chronic obstructive pulmonary disease) Is this a current diagnosis for this admission?: Yes Plan: As seen on XRAY Patient able to maintain SPO2>88% without supplemental oxygen (5) DNR (do not resuscitate) Is this a current diagnosis for this admission?: Yes Plan: Patient comes from [facility] with DNR paperwork (6) Nutrition deficiency due to insufficient food Is this a current diagnosis for this admission?: Yes Plan: NG tube placed 04/05 and enteral feeding initiated Patient initially was refusing to eat citing throat and mouth pain. NG tube D/C'd when patient placed on palliative care. - Time Time Spent with patient: 15-24 minutes Medications reviewed and adjusted accordingly: Yes Anticipated discharge: SNF - Inpatient Certification Based on my medical assessment, after consideration of the patient's comorbidities, presenting symptoms, or acuity I expect that the services needed warrant INPATIENT care.: Yes I certify that my determination is in accordance with my understanding of Medicare's requirements for reasonable and necessary INPATIENT services [42 CFR 412.3e].: Yes Medical Necessity: Need for IV Antibiotics, Risk of Complication if Not Cared For in Hospital - Plan Summary Plan Summary: SEND BACK TO [facility] TOMORROW UNDER PALLIATIVE CARE SERVICES
[2018-04-09] MEDS: CIPROFLOXACIN 400 MG/D5W RTU 400 MG/200 ML RTUPB IV SCH (23:23)
[2018-04-10] MEDS: NYSTATIN 500000 UNIT/5 ML UDCUP PO SCH ×4 (01:13→17:55)
[2018-04-10] MEDS: HEPARIN SOD (PORCINE) 5,000 UNIT/ML 1 ML SYRINGE SUBCUT SCH ×3 (06:11→22:25)
[2018-04-10] MEDS: LOSARTAN POTASSIUM 25 MG TABLET NG SCH ×2 (10:35→22:25)
[2018-04-10] MEDS: POLYETHYLENE GLYCOL 3350 POWDER 17 GM/1 PACKET NG SCH (10:36)
[2018-04-10] MEDS: DEXTROSE 5%-1/2 NORMAL SALINE 1,000 ML IV PRN (12:26)
[2018-04-10] MEDS: MIRTAZAPINE 15 MG TABLET NG SCH (22:25)
[2018-04-10] MEDS: CIPROFLOXACIN 400 MG/D5W RTU 400 MG/200 ML RTUPB IV SCH (22:27)
--- NOTE | 2018-04-11 01:16 | PDOC PROGRESS REPORT ---
Subjective Progress Note for:: 04/10/18 Subjective:: 87 y.o. F resident of [facility] admitted for UTI and weakness. PMH includes HTN. The patient was seen this morning on rounds. She is resting comfortably in bed on room air. She is minimally interactive, willing to answer basic yes/no questions, does not speak in full sentences. Upon assessment, lungs are clear to auscultation , S1S2, abdomen is soft and nontender. Comfort care recommended. Discussed with discharge planning. Ready for transfer back to [facility]. Unable to make arrangements with [facility] because they do not have a contract with [facility]. Discharge planning aware of this situation. Reason For Visit: UTI Physical Exam Vital Signs: Temp Pulse Resp BP Pulse Ox 98.2 F 83 14 141/63 H 99 04/10/18 23:49 04/10/18 23:49 04/10/18 23:49 04/10/18 23:49 04/10/18 23:49 Intake & Output 04/09/18 04/10/18 04/11/18 06:59 06:59 06:59 Intake Total 1942 1000 Balance 1942 1000 Weight 44.2 kg 46.3 kg General appearance: PRESENT: no acute distress, thin Head exam: PRESENT: atraumatic Eye exam: PRESENT: conjunctiva pink, PERRLA Teeth exam: PRESENT: poor dentation Neck exam: PRESENT: full ROM Respiratory exam: PRESENT: clear to auscultation bettie, symmetrical, unlabored Cardiovascular exam: PRESENT: +S1, +S2 Pulses: PRESENT: normal radial pulses, normal dorsalis pedis pul GI/Abdominal exam: PRESENT: normal bowel sounds, soft. ABSENT: tenderness Rectal exam: PRESENT: deferred Extremities exam: ABSENT: full ROM, joint swelling, pedal edema Musculoskeletal exam: ABSENT: ambulatory, full ROM Neurological exam: PRESENT: awake, oriented to person. ABSENT: oriented to place, oriented to time, oriented to situation Psychiatric exam: PRESENT: flat affect Skin exam: PRESENT: dry, intact, normal color, warm Results Laboratory Results: 04/07/18 07:39 04/07/18 07:39 Impressions: Chest X-Ray 04/03/18 15:27 IMPRESSION: COPD. NO ACUTE RADIOGRAPHIC FINDING IN THE CHEST. KUB X-Ray 04/05/18 15:07 IMPRESSION: Tubes as described. Status: Imported from PACS Assessment & Plan - Diagnosis (1) Quality of life palliative care encounter Is this a current diagnosis for this admission?: Yes Plan: Requested palliative care consult via [facility], they do not have contract at [facility] and cannot provide services [facility] staff can preform assessment for comfort care (based on our recommendations) Patient's friends/emergency contact are all in agreement about this plan Of note, the patient has no living family (spouse/children/siblings) or next of kin, there is no Medical POA. All decisions made by medical staff. Currently under investigation by APS, immigration case worker is María Haywood D/C'D NG tube D/C'D Trujillo catheter D/C'D a.m. lab draws Comfort feeding (2) UTI (urinary tract infection) Qualifiers: Urinary tract infection type: site unspecified Is this a current diagnosis for this admission?: Yes Plan: Patient presented with weakness and altered mental status Urine culture (+) ESBL E.coli and Pseudomonas SARA for Rocephin is 8, switch to Cipro with better SARA of 1 (DAY 5) Afberile and no leukocytosis (3) Encephalopathy Is this a current diagnosis for this admission?: Yes Plan: Likely secondary to UTI and generalized weakness Patient's mental status improving today, she is able to tell me her name, birthday, and location. She remains disoriented to time and duration. Previously, she would only answer yes/no questions Continue IV antibiotics (4) COPD (chronic obstructive pulmonary disease) Is this a current diagnosis for this admission?: Yes Plan: Chronic changes as seen on XRAY Patient able to maintain SPO2>88% without supplemental oxygen (5) DNR (do not resuscitate) Is this a current diagnosis for this admission?: Yes Plan: Patient comes from [facility] with DNR paperwork (6) Nutrition deficiency due to insufficient food Is this a current diagnosis for this admission?: Yes Plan: NG tube placed 04/05 and enteral feeding initiated Patient initially was refusing to eat citing throat and mouth pain. NG tube D/C'd when patient placed on comfort care. - Time Time Spent with patient: 15-24 minutes Medications reviewed and adjusted accordingly: Yes Anticipated discharge: SNF - Inpatient Certification Based on my medical assessment, after consideration of the patient's comorbidities, presenting symptoms, or acuity I expect that the services needed warrant INPATIENT care.: Yes I certify that my determination is in accordance with my understanding of Medicare's requirements for reasonable and necessary INPATIENT services [42 CFR 412.3e].: Yes Medical Necessity: Risk of Complication if Not Cared For in Hospital - Plan Summary Plan Summary: WAITING FOR TRANSFER BACK TO [facility]
[2018-04-11] MEDS: NYSTATIN 500000 UNIT/5 ML UDCUP PO SCH ×3 (01:51→13:17)
[2018-04-11] MEDS: HEPARIN SOD (PORCINE) 5,000 UNIT/ML 1 ML SYRINGE SUBCUT SCH (06:33)
[2018-04-11] MEDS: DEXTROSE 5%-1/2 NORMAL SALINE 1,000 ML IV PRN (08:02)
[2018-04-11] MEDS: POLYETHYLENE GLYCOL 3350 POWDER 17 GM/1 PACKET NG SCH (10:57)
[2018-04-11] MEDS: LOSARTAN POTASSIUM 25 MG TABLET NG SCH (10:57)
--- NOTE | 2018-04-11 11:45 | PDOC TRANSFER SUMMARY ---
General - Admit/Disc Date/PCP Admission Date/Primary Care Provider: 04/03/18 19:38 Discharge Date: 04/11/18 - Discharge Diagnosis (1) Encephalopathy Is this a current diagnosis for this admission?: Yes Summary: Improved; likely secondary to UTI, generalized weakness, and underlying dementia. The patient is known from a previous admission; it appears that she has returned to her baseline mental status. The patient is alert and oriented to self and location; disoriented to time and situation. She only intermittently participates with conversations which makes a full assessment of her mental status difficult to ascertain. Psychiatry has been consulted; capacity evaluation is pending. DSS/APS have been consulted and are following. (2) UTI (urinary tract infection) Is this a current diagnosis for this admission?: Yes Summary: The patient presented with weakness and altered mental status. Urine culture was positive for ESBL E. coli and Pseudomonas. Urinalysis revealed protein, ketones, moderate blood, negative for nitrites, leuk esterase, 3 WBCs, and +1 bacteria. This is similar to her previous admission. It is possible that urinalysis and culture represents colonization and not active infection. She was empirically placed on Rocephin, and switched to ciprofloxacin once sensitivities resulted. She has received a 5 day course of antibiotics and will not require continued antibiotic therapy upon discharge. Recommend encouraging p.o. fluids and providing meticulous perineal hygiene. (3) COPD (chronic obstructive pulmonary disease) Is this a current diagnosis for this admission?: Yes Summary: Chronic changes noted on x-ray. Patient is stable and without exacerbation. She is able to maintain her oxygen saturations greater than 88% on room air. (4) Nutrition deficiency due to insufficient food Is this a current diagnosis for this admission?: Yes Summary: As evidenced by BMI of 19.8, loss of subcutaneous fat and muscle, and frail appearance. Albumin is low; 2.5. The patient initially stated that she had mouth discomfort; empirically placed on nystatin for thrush as she is recently received IV antibiotics for urinary tract infection. Initially, NG tube was placed and tube feeds started. This is subsequently been discontinued and the patient has been returned to a soft diet; encourage high protein/high calorie intake. Continue mirtazapine. (5) DNR (do not resuscitate) Is this a current diagnosis for this admission?: Yes Summary: Recommend outpatient hospice referral. DSS/APS has been consulted and is following the patient. - Additional Information Resuscitation Status: Do Not Resuscitate Discharge Diet: As Tolerated, Regular - High-calorie/high-protein Discharge Activity: Activity As Tolerated, Balance Activity w/Rest Prescriptions: Nystatin [Mycostatin 500,000 Unit/5 ml Susp Udcup] 100,000 unit PO Q6 #120 udc Home Medications: Losartan Potassium [Cozaar 25 mg Tablet] 25 mg PO Q12 #60 tablet 03/30/18 Mirtazapine [Remeron 15 mg Tablet] 15 mg PO QHS #30 tablet 03/30/18 Na Phos,M-B/Na Phos,Di-Ba [Fleet Enema (Adult) 133 ml] 133 ml NH DAILYP PRN enema 03/30/18 Polyethylene Glycol 3350 [Miralax Powder 17 gm/Packet] 17 gm PO DAILY #30 powd.pack 03/30/18 Acetaminophen [Tylenol 325 mg Tablet] 650 mg PO Q6HP PRN 04/04/18 Losartan Potassium 25 mg PO Q12 04/04/18 Mirtazapine [Remeron 15 mg Tablet] 7.5 mg PO QHS 04/04/18 Polyethylene Glycol 3350 [Miralax Powder 17 gm/Packet] 1 packet PO DAILY Acetaminophen [Tylenol 325 mg Tablet] 650 mg NG Q4HP PRN tablet 04/11/18 Nystatin [Mycostatin 500,000 Unit/5 ml Susp Udcup] 100,000 unit PO Q6 #120 udc 04/11/18 History of Present Illness Admission Date/PCP: 04/03/18 19:38 History of Present Illness: Per H&P by Dr. Anderson: CINDI MCGREGOR is a 87 year old female who [facility] as she was unable to walk. She was admitted in some hospital and discharge on to the rehab facility, we do not have the records. The ED attending lesion and the patient was evaluated here for dehydration and discharge facility but I do not see any records. Apparently since her discharge the patient has been unable to drink or eat anything and her mental status has been deteriorating. In the emergency become follow simple commands but she cannot tell me any history. Apparently patient has been complaining of sore throat and a swab for strep was done in the ED which came back negative. Urinalysis came back positive for UTI, she has leukocytosis with 11% bands and toxic granulations previous chest x-ray with no infiltrates. Order IV fluids and Rocephin in the ED. Unfortunately no further information can be obtained at this time. Physical Exam Vital Signs: Temp Pulse Resp BP Pulse Ox 98.2 F 88 13 138/94 H 97 04/11/18 08:17 04/11/18 08:17 04/11/18 08:17 04/11/18 08:17 04/11/18 08:17 Intake & Output 04/10/18 04/11/18 04/12/18 06:59 06:59 06:59 Intake Total 1000 1100 Balance 1000 1100 Weight 46.3 kg 46 kg General appearance: PRESENT: no acute distress, well-developed, other - Cachectic. ABSENT: cooperative - Minimal participation with exam; only occasionally answers questions Head exam: PRESENT: atraumatic, normocephalic Eye exam: PRESENT: conjunctiva pink, EOMI, PERRLA. ABSENT: scleral icterus Ear exam: PRESENT: normal external ear exam Mouth exam: PRESENT: moist, tongue midline Neck exam: ABSENT: carotid bruit, JVD, lymphadenopathy, thyromegaly Respiratory exam: PRESENT: clear to auscultation bettie, symmetrical, unlabored. ABSENT: rales, rhonchi, wheezes Cardiovascular exam: PRESENT: RRR, +S1, +S2. ABSENT: diastolic murmur, rubs, systolic murmur Pulses: PRESENT: normal dorsalis pedis pul Vascular exam: PRESENT: normal capillary refill GI/Abdominal exam: PRESENT: normal bowel sounds, soft. ABSENT: distended, guarding, mass, organolmegaly, rebound, tenderness Rectal exam: PRESENT: deferred Extremities exam: PRESENT: full ROM. ABSENT: calf tenderness, clubbing, pedal edema Neurological exam: PRESENT: alert, awake, oriented to person, oriented to place , CN II-XII grossly intact, other - Exam limited secondary to patient participation; she is noted to be awake and alert, oriented to herself. Later nursing tells me that she is oriented to place. However, she will not discuss her current health or needs. She does smile when I state that she will likely be discharged today.. ABSENT: oriented to time, oriented to situation, motor sensory deficit Psychiatric exam: PRESENT: other - Withdrawn. ABSENT: homicidal ideation, suicidal ideation Skin exam: PRESENT: dry, intact, warm. ABSENT: cyanosis, rash Results Laboratory Results: 04/07/18 07:39 04/07/18 07:39 Impressions: Chest X-Ray 04/03/18 15:27 IMPRESSION: COPD. NO ACUTE RADIOGRAPHIC FINDING IN THE CHEST. KUB X-Ray 04/05/18 15:07 IMPRESSION: Tubes as described. Transfer Plan - Disposition Transfer Plan: Discharge to [facility] for patient is an established resident. - Time Spent with Patient Time spent with patient: Less than 30 Minutes Qualifiers - * PATIENT BEING DISCHARGED WITH ANY OF THE FOLLOWING DIAGNOSIS: No Plan Discharge Plan: Discharge to [facility] with the patient is an established resident; recommend hospice follow-up and likely bridge to comfort care in the near future. APS/DSS is consulted and following. Time Spent: Less than 30 Minutes
[2018-04-11 15:14] VITALS: BP 130/98
== END 2018-04-11 15:15 | DRG 689 ==
LOC: ER 14:57 → EH 19:38 → 4S 04-04 04:08
PROVIDERS: ADMIT Internal Medicine; ATTEND Internal Medicine
DX: N39.0 Urinary tract infection, site not specified (principal); G93.41 Metabolic encephalopathy; Z68.1 Body mass index [BMI] 19.9 or less, adult; E86.0 Dehydration; Z66 Do not resuscitate; J44.9 Chronic obstructive pulmonary disease, unspecified; R41.82 Altered mental status, unspecified; R62.7 Adult failure to thrive; I10 Essential (primary) hypertension; B96.20 Unspecified Escherichia coli [E. coli] as the cause of diseases classified elsewhere; B96.5 Pseudomonas (aeruginosa) (mallei) (pseudomallei) as the cause of diseases classified elsewhere; T73.0XXA Starvation, initial encounter
CPT/HCPCS: 36415; 51701; 71045; 74018; 80053; 81001; 83605; 83690; 83735; 84100; 85025; 85027; 85610; 87040; 87070; 87086; 87088; 87186; 87880; 93005; 93010; 99285; J0696; J0744; J1644; J3480; J3490; J7030; S0164